=== PATIENT | female | born 2000 | race Caucasian/White ===

== ENCOUNTER 2023-05-28 10:45 | Outpatient (RCR) | payer BC, SELFPAY | END 2023-08-10 10:03 | disposition home or self-care (01) | LOC: ANHDMC 10:45 | PROVIDERS: Visit Provider Obstetrics & Gynecology | DX: O24.12 Pre-existing type 2 diabetes mellitus, in childbirth (principal); Z3A.00 Weeks of gestation of pregnancy not specified; Z71.89 Other specified counseling | CPT/HCPCS: G0108 ==

== ENCOUNTER 2023-05-28 14:33 | Outpatient (RCR) | payer BC, SELFPAY ==
[2023-05-28 16:37] VITALS: BP 130/82; PULSE 97
== END 2023-08-26 23:59 | disposition home or self-care (01) ==
LOC: ANHOBOP 14:33
PROVIDERS: Visit Provider Obstetrics & Gynecology
DX: O36.8130 Decreased fetal movements, third trimester, not applicable or unspecified (principal); Z3A.32 32 weeks gestation of pregnancy
CPT/HCPCS: 59025

== ENCOUNTER 2023-07-01 00:56 | Outpatient (CLI) | payer BC, SELFPAY ==
[2023-07-01 01:15] VITALS: BP 130/85; PULSE 68
[2023-07-01 01:25] LABS: Basophils Percent Auto 0.3 % (0.2-1.2); Eosinophils Absolute Auto 0.1 K/mm3 (0-0.3); Eosinophils Percent Auto 0.8 % (0-4.4); Hematocrit 39.4 % (37.0-47.0); Hemoglobin 13.2 g/dL (12.0-15.0); Immature Granulocyte Absolute 0.21 K/mm3 (0.00-0.031); Immature Granulocyte Percent A 1.6 % (0-0.5); Lymphocytes Absolute Auto 2.95 K/mm3 (0.9-3.2); Lymphocytes Percent Auto 22.7 % (18.3-44.2); Mean Corpuscular HGB Conc 33.5 g/dl (32-36); Mean Corpuscular Hemoglobin 28.8 pg (26-34); Mean Platelet Volume 10.8 fl (7.4-10.4); Monocytes Absolute Auto 1.1 K/mm3 (0.1-0.6); Monocytes Percent Auto 8.1 % (2.6-8.5); Neutrophils Absolute Auto 8.7 K/mm3 (1.3-6.7); Neutrophils Percent Auto 66.5 % (45.5-73.1); Platelet Count Result 251 k/mm3 (150-375); Red Blood Count 4.58 M/mm3 (4.2-5.4); Red Cell Distribution Width 13.7 % (11.5-14.5)
[2023-07-01 01:29] VITALS: BP 130/85; PULSE 68
[2023-07-01 01:30] VITALS: BP 124/72; PULSE 66
[2023-07-01 01:36] LABS: Total Protein Urine Random 10 mg/dL; Ur Ttl Prot Creatinine Ratio 0.28 mg/mg (0-0.20)
[2023-07-01 01:46] VITALS: BP 121/74; PULSE 65
[2023-07-01 01:47] LABS: Appearance Urine Clear (Clear); Bacteria Urine None Seen /hpf; Bilirubin Urine Negative (Negative); Blood Urine Negative (Negative); Color Urine Yellow (Yellow); Glucose Urine UA Negative (Negative); Ketones Urine Negative (Negative); Leukocyte Esterase Ur Trace LEU/UL (NEGATIVE); Nitrate Urine Negative (Negative); Non Pathogenic Casts 0-2; Protein Urine Negative (Negative); RBC Urine 0-2 /hpf (0-2); Specific Grav Ur 1.008 (1.001-1.035); Squamous Epithelial Cell Urine Occasional /hpf (Few); Urobilinogen Urine 0.2 mg/dL (<2.0); WBC Urine 0-5 /hpf (0-3)
[2023-07-01 01:59] LABS: Add Urine Microscopic? YES
[2023-07-01 02:03] LABS: Alanine Aminotransferase 20 U/L (6-35); Albumin Level 3.5 g/dL (3.5-5.1); Alkaline Phosphatase 165 U/L (38-126); Anion Gap 8 mmol/L (8-16); Aspartate Amino Transferase 22 U/L (14-36); Bilirubin,Total 0.4 mg/dL (0.2-1.3); Blood Urea Nitrogen 6 mg/dL (7-17); Calcium 9.5 mg/dL (8.4-10.2); Carbon Dioxide 21 mmol/L (22-30); Chloride 108 mmol/L (98-107); Estimated Glomerular Filt Rate > 60; Glucose 89 mg/dL (65-110); Sodium 137 mmol/L (137-145); Uric Acid 3.8 mg/dL (2.5-7.5)
--- NOTE | 2023-07-01 02:07 | PC.NURSE ---
[id number] Shavonne Bolden
--- NOTE | 2023-07-01 02:11 | PC.NURSE ---
Talked To Dr. Shavonne Bolden at this time. reported on maternal and status. Orders received to give this patient 1000mg of Tylenol at this time. Patient is to follow up at her scheduled office visit today and orders given to dc this patient at this time.
[2023-07-01] MEDS: ACETAMINOPHEN 500 MG TABLET 1000 MG PO (02:16)
[2023-07-01 02:21] VITALS: BP 124/72; PULSE 68
== END 2023-07-01 02:24 | disposition home or self-care (01) ==
LOC: ANHOBOP 01:09 → ANHOBPP 02:21
PROVIDERS: Visit Provider Obstetrics & Gynecology
DX: O13.9 Gestational [pregnancy-induced] hypertension without significant proteinuria, unspecified trimester (principal); Z3A.00 Weeks of gestation of pregnancy not specified
CPT/HCPCS: 36415; 59025; 80053; 81001; 82570; 84156; 84550; 85025; 87086; 87088; 99199; A9270

== ENCOUNTER 2023-07-07 01:01 | Outpatient (CLI) | payer BC, SELFPAY ==
--- NOTE | 2023-07-07 01:40 | PC.NURSE ---
Notified Dr. Renner of negative ROM plus results. FHT appropriate for gestational age. Patient denies contractions or pain and no contractions noted during monitoring. Notified Dr. Renner of patient vital signs during assessment. Patient is ok to go home and follow-up at her normal OB appointment as scheduled this Thursday07/08/2023.
[2023-07-07 01:41] VITALS: BP 132/87; PULSE 72; TEMP 36.8
--- NOTE | 2023-07-07 01:45 | PC.NURSE ---
Labor precautions reviewed with patient. Patient instructed to follow up with Dr. Fields as scheduled this week. Patient states understanding.
== END 2023-07-07 01:45 | disposition home or self-care (01) ==
LOC: ANHOBOP 01:42 → ANHLDR 07-16 06:22
PROVIDERS: Visit Provider Obstetrics & Gynecology
DX: O26.851 Spotting complicating pregnancy, first trimester (principal); Z3A.00 Weeks of gestation of pregnancy not specified
CPT/HCPCS: 59025; 84112; 99199

== ENCOUNTER 2023-07-14 06:05 | Inpatient (IN) | payer BC, SELFPAY ==
[2023-07-14] VITALS (272 sets, daily range): BP systolic 69–186; BP diastolic 37–150; PULSE 25–190; TEMP 36.1–37.1; O2SAT 82–100; BMI 42.1
--- NOTE | 2023-07-14 07:02 | P.HP_ITS ---
H&P: HPI History of Present Illness Date/Time: 07/14/23 07:02 Chief Complaint: term with chronic hypertension Narrative: this is a 23-year-old 1 para 0 whose last menstrual period was 10/13/2022, EDC is 07/20/2023, confirmed by 10 week ultrasound who presents at 39 weeks gestation for induction of labor since secondary to elevated blood pressures. Her findings have been okay. She had an abnormal 1hour glucose test and 2/4 abnormal her 3hour GTT. Her sugars remained well controlled on diet alone. COUNTS INCLUDE 234 BEDS AT THE [facility] Family History Family History Grandparent Ovarian cancer Diabetes mellitus Leukemia Grandparent Ovarian cancer Diabetes mellitus Father Sarcoma Grandparent Diabetes mellitus Grandparent Heart disease Social History Social History Substance use: never Spiritual care concerns: No Meds Home Medications and Allergies Home Medications Medication Instructions Recorded Confirmed Type glyburide 2.5 mg tablet 2.5 mg PO DAILY 06/22/23 06/22/23 History labetalol 100 mg tablet 100 mg PO Q12H 06/22/23 06/22/23 History ondansetron HCl 4 mg tablet 4 mg PO Q6H 06/22/23 06/22/23 History prenat.vits,el,fzq-gxbf-kgore 1 tablet 06/22/23 History Allergies Allergy/AdvReac Type Severity Reaction Status Date / Time No Known Allergies Allergy Verified 07/14/23 06:53 Exam Const: General: cooperative, healthy appearing and comfortable Nutritional Appearance: average body habitus Orientation/consciousness: oriented to person, oriented to place and oriented to time HENMT: Head: normal to inspection Resp: Effort & Inspection: normal respiratory effort Cardio: Rate: regular rate Rhythm: regular rhythm Heart sounds: S1 normal heart sound present and S2 normal heart sound present GI: Inspection: normal to inspection : External Female Exam: normal external appearance Speculum Exam - Vagina: normal appearance of the vagina Speculum Exam - Cervix: normal appearance of the cervix ( Cervix 3/75/1. AROM clear. FHT is reassuring) Assessment and Plan Assessment and plan (1) Term : Code(s): Z34.90 - Encounter for supervision of normal , unspecified, unspecified trimester Status: Acute (2) Chronic hypertension: Code(s): I10 - Essential (primary) hypertension Status: Acute (3) Gestational diabetes: Code(s): O24.419 - Gestational diabetes mellitus in , unspecified control Status: Acute Plan medical induction of labor. Spontaneous vaginal delivery is expected. She has an epidural candidate
--- NOTE | 2023-07-14 07:03 | LDADM ---
This patient, Joya Martinez, was admitted to Labor/Delivery/Recovery 109 on 07/14/23 at 06:05. Plans for labor, pain management and were discussed with patient. Patient/family oriented to hospital policies and general routines including ID bracelet, bed and alarms, visiting hours, pain management, procedures, bathroom and other care routines, personal items, smoking policy, room service/diet and guest tray routines, security routines, and visiting hours. Patient/Family are encouraged to report perceived risks to care and to ask questions if they do not understand what they are told or what they should do. See OBIX for further documentation.
[2023-07-14 07:38] LABS: Basophils Percent Auto 0.3 % (0.2-1.2); Eosinophils Absolute Auto 0.2 K/mm3 (0-0.3); Eosinophils Percent Auto 1.3 % (0-4.4); Hematocrit 38.4 % (37.0-47.0); Hemoglobin 12.8 g/dL (12.0-15.0); Immature Granulocyte Percent A 0.8 % (0-0.5); Immature Platelet Fraction Pct 12.7 % (0.9-11.2); Lymphocytes Absolute Auto 2.26 K/mm3 (0.9-3.2); Lymphocytes Percent Auto 18.1 % (18.3-44.2); Mean Corpuscular HGB Conc 33.3 g/dl (32-36); Mean Corpuscular Hemoglobin 28.8 pg (26-34); Mean Corpuscular Volume 86.3 fl (80-100); Mean Platelet Volume 11.9 fl (7.4-10.4); Monocytes Absolute Auto 0.8 K/mm3 (0.1-0.6); Monocytes Percent Auto 6.7 % (2.6-8.5); Neutrophils Absolute Auto 9.1 K/mm3 (1.3-6.7); Neutrophils Percent Auto 72.8 % (45.5-73.1); Platelet Count Result 231 k/mm3 (150-375); Red Blood Count 4.45 M/mm3 (4.2-5.4); Red Cell Distribution Width 14.3 % (11.5-14.5); White Blood Count 12.5 K/mm3 (4.5-10.0)
[2023-07-14] MEDS: OXYTOCIN 30 UNITS/NS 500 ML 30 UNITS/500 ML BAG 6 UNITS IV CONT (07:45)
[2023-07-14] MEDS: LACTATED RINGERS 1,000 ML 125 ML IV CONT ×3 (07:45→16:02)
[2023-07-14 08:22] LABS: Glucose Point of Care 109 mg/dl (65-105)
[2023-07-14] MEDS: fentaNYL CITRATE INJ (*CRX) 100 MCG/2 ML VIAL 50 MCG IV PUSH (09:58)
[2023-07-14 10:11] LABS: Glucose Point of Care 103 mg/dl (65-105)
--- NOTE | 2023-07-14 11:19 | WPDANESEPP ---
Anes - Eval Pre Procedure Procedure: Labor Epidural Date/Time: 07/14/23 11:19 Surgeon: Eamon Preop Diagnosis: Labor Pain Pre Op Diagnosis: iol Patient Data Age: 23 Gender: F Height: 1.57 m Weight: 104.5 kg Last Vital Signs Temp 36.3 C L 07/14/23 06:37 Pulse 75 07/14/23 11:18 BP 125/64 07/14/23 11:18 Pulse Ox 98 07/14/23 11:14 O2 Del Method Room Air 07/14/23 06:56 Allergies Allergy/AdvReac Type Severity Reaction Status Date / Time No Known Allergies Allergy Verified 07/14/23 06:53 Home Medications Medication Instructions Recorded Confirmed Type glyburide 2.5 mg tablet 2.5 mg PO DAILY 06/22/23 06/22/23 History labetalol 100 mg tablet 100 mg PO Q12H 06/22/23 06/22/23 History ondansetron HCl 4 mg tablet 4 mg PO Q6H 06/22/23 06/22/23 History prenat.vits,el,gjq-sqtw-aenwm 1 tablet PO DAILY 06/22/23 07/14/23 History Laboratory Tests 07/14/23 07/14/23 07/14/23 06:51 08:19 10:08 WBC 12.5 H K/mm3 (4.5-10.0) RBC 4.45 M/mm3 (4.2-5.4) Hgb 12.8 g/dL (12.0-15.0) Hct 38.4 % (37.0-47.0) MCV 86.3 fl (80-100) MCH 28.8 pg (26-34) MCHC 33.3 g/dl (32-36) RDW 14.3 % (11.5-14.5) Plt Count 231 k/mm3 (150-375) MPV 11.9 H fl (7.4-10.4) Immature Gran % (Auto) 0.8 H % (0-0.5) Neut % (Auto) 72.8 % (45.5-73.1) Lymph % (Auto) 18.1 L % (18.3-44.2) [place] % (Auto) 6.7 % (2.6-8.5) Eos % (Auto) 1.3 % (0-4.4) Baso % (Auto) 0.3 % (0.2-1.2) Lymph # (Auto) 2.26 K/mm3 (0.9-3.2) [place] # (Auto) 0.8 H K/mm3 (0.1-0.6) Eos # (Auto) 0.2 K/mm3 (0-0.3) Baso # (Auto) 0.0 K/mm3 (0.0-0.1) Abs Immat Gran (auto) 0.10 H K/mm3 (0.00-0.031) Absolute Neuts (auto) 9.1 H K/mm3 (1.3-6.7) Absolute Nucleated RBC 0.0 K/mm3 (0.0-0.012) Nucleated RBC % 0.0 % (0.0-0.2) % Immature Plt Fraction 12.7 H % (0.9-11.2) POC Capillary Glucose 109 H mg/dl 103 mg/dl (65-105) (65-105) RPR Pending Blood Type B Positive Antibody Screen Negative : gestational age (FOREIGN 07/20/23, ) Patient hx anesthesia problems: none Family hx anesthesia problems: none Results Review: All pre-operative results and documents have been reviewed as part of the pre-operative evaluation. [facility] Family History Family History Grandparent Ovarian cancer Diabetes mellitus Leukemia Grandparent Ovarian cancer Diabetes mellitus Father Sarcoma Grandparent Diabetes mellitus Grandparent Heart disease Social History Social History Smoking status: Never smoker Second hand tobacco smoke exposure: No Substance use: never Do You Feel Safe in your Home?: Yes Lack of Transportation: No Lack of Food: Never True Current Housing: I Have Housing Concerned About Future Housing: No Difficulty Paying Gas/Electric Bills: No Difficulty Paying for Meds: No Currently Unemployed: No Education: Bachelor's Degree Difficulty w/ Childcare or Family Care: No Spiritual care concerns: No Exam Day of Procedure 07/14/23 11:19 Patient weight: obese Heart: regular rate and rhythm Lungs: normal air movement Airway: Mallampati scale class II Neurological: alert and oriented
--- NOTE | 2023-07-14 12:02 | PM.OBPNLAB ---
Pain Control Date/time seen: 07/14/23 12:02 Pain control: tolerating well and epidural Pelvic Exam Dilation (cm): 3 Effacement (%): 75 station: -2 Amniotic membrane status: Leaking
[2023-07-14 14:32] LABS: Glucose Point of Care 86 mg/dl (65-105)
[2023-07-14 15:57] LABS: Rapid Plasma Reagin Non-Reactive (NonReactive)
[2023-07-14 16:32] LABS: Glucose Point of Care 87 mg/dl (65-105)
--- NOTE | 2023-07-14 16:37 | PM.OBPNLAB ---
Pain Control Date/time seen: 07/14/23 16:37 Pelvic Exam Dilation (cm): 10 Effacement (%): 100 station: -1 Amniotic membrane status: Leaking
--- NOTE | 2023-07-14 23:07 | PM.OBPNLAB ---
Pain Control Date/time seen: 07/14/23 23:07 Pain control: tolerating well and epidural Pelvic Exam Dilation (cm): 10 Effacement (%): 100 station: -1 Amniotic membrane status: Leaking Comments: the patient is the pushed for 2 she is a to bring to a low enough level to allow for assistance. Proceed with low-transverse section. Risks were reviewed
[2023-07-14] MEDS: ceFAZolin 2 GM/D5W 50 ML 2 GM/50 ML BAG IVPB (23:31)
[2023-07-15] VITALS (57 sets, daily range): BP systolic 99–155; BP diastolic 53–92; PULSE 93–120; RESP 8–20; TEMP 36.6–38.2; O2SAT 94–100
--- NOTE | 2023-07-15 00:26 | W.PM.OBCSD ---
OB - Delivery Note Procedure Delivery date: 07/15/23 Pre-op diagnosis: Arrest of Decent Post-op Diagnosis: Same Induction method: AROM Delivery augmentation: Pitocin Delivery monitor: External FHT and Internal Uterine Procedure Performed: Primary Surgeon: Priyank Bolden MD Anesthesia type: Epidural Description of Procedure/Findings: Patient was admitted for induction labor. She got to completely dilated and pushed for 3hours was unable to bring past +2 station. She was offered low-transverse section taken the back prepped draped placed in the supine position. Under excellent epidural anesthesia the abdomen was entered in Pfannenstiel fashion progressive layers of fascia. Fascia incised midline cure number not press bilaterally. Underlying muscles sharply dissected. Parietal peritoneum 0 by Mel clamps and by sharp dissection. This was carried superiorly and inferiorly down the bladder. Bladder blade placed and a bladder flap formed. Bladder blade returned a low transverse incision made the head delivered in the TREV position. Anterior posterior shoulder delivered spontaneously. Cord clamped oozing cut and passed off the table given Apgars of 8 [id number]. Cord blood was drawn. Placenta delivered intact manually. Uterus delivered the abdomen wrapped in moist towel. After assuring no membranes or debris remained in the uterus, the uterus was closed with continuous running 0 Vicryl from lateral edge to lateral edge. This followed by 2nd imbricating running locking 0 Vicryl from lateral edge to lateral edge. Hemostasis was assured uterus returned to the abdomen. Ovaries and tubes appeared within normal limits. Laps removed and accounted for. The fascia closed with continuous running 0 Vicryl from lateral edge to lateral edge. Irrigation subcutaneously and the skin closed with 4 Monocryl glue. Blood loss was 905cc. All sponge, needle, instrument counts correct baby doing fine at the time dictation Estimated Blood Loss: 905 Drains: No Packing: No Pathology: None sent Complications: No immediate complications Condition: Stable Disposition: Floor [place] Baby Date of : 07/15/23 Time of : 23:00 Weeks of gestation at delivery: 40 gender: Female Weight (pounds): 7 Weight (ounces): 10 presentation: vertex position: Right Occiput Anterior Placenta delivery description: Manual Removal Cord Vessel Description: 3 Vessels score one minute: 8 score five minutes: 9
--- NOTE | 2023-07-15 00:29 | PM.DS ---
DS: Admitting Diagnosis Discharge Date 07/17/2023 Admitting Diagnosis term /gestational diabetes/ chronic hypertension DS: Discharge Diagnosis Discharge Diagnosis (1) Gestational diabetes: Code(s): O24.419 - Gestational diabetes mellitus in , unspecified control Status: Acute (2) Chronic hypertension: Code(s): I10 - Essential (primary) hypertension Status: Acute (3) Term : Code(s): Z34.90 - Encounter for supervision of normal , unspecified, unspecified trimester Status: Acute DS: Summary Hospital Course Reason for hospitalization: patient was admitted for induction of labor on 07/14/2023. Hospital Course: Patient underwent low-transverse 24. Hospital course. She remained afebrile. She was up when cut, eating regular diet, ambulating, generally without complaints. Time Spent with Patient Time attestation: Total time spent providing and/or coordinating discharge services: Exam Const: General: cooperative, healthy appearing and comfortable Orientation/consciousness: oriented to person, oriented to place and oriented to time Resp: Effort & Inspection: normal respiratory effort Cardio: Rate: regular rate Rhythm: regular rhythm Heart sounds: S1 normal heart sound present and S2 normal heart sound present GI: Inspection: normal to inspection ( Fundus removal next) and incision ( wound clean dry and intact) DS: Data Data Completed and Pending Labs on day of discharge: Labs from last 24 hours 07/14/23 07/14/23 07/14/23 16:19 14:26 10:08 WBC RBC Hgb Hct MCV MCH MCHC RDW Plt Count MPV Immature Gran % (Auto) Neut % (Auto) Lymph % (Auto) [place] % (Auto) Eos % (Auto) Baso % (Auto) Lymph # (Auto) [place] # (Auto) Eos # (Auto) Baso # (Auto) Abs Immat Gran (auto) Absolute Neuts (auto) Absolute Nucleated RBC Nucleated RBC % % Immature Plt Fraction POC Capillary Glucose 87 86 103 RPR Blood Type Antibody Screen 07/14/23 07/14/23 08:19 06:51 WBC 12.5 H RBC 4.45 Hgb 12.8 Hct 38.4 MCV 86.3 MCH 28.8 MCHC 33.3 RDW 14.3 Plt Count 231 MPV 11.9 H Immature Gran % (Auto) 0.8 H Neut % (Auto) 72.8 Lymph % (Auto) 18.1 L [place] % (Auto) 6.7 Eos % (Auto) 1.3 Baso % (Auto) 0.3 Lymph # (Auto) 2.26 [place] # (Auto) 0.8 H Eos # (Auto) 0.2 Baso # (Auto) 0.0 Abs Immat Gran (auto) 0.10 H Absolute Neuts (auto) 9.1 H Absolute Nucleated RBC 0.0 Nucleated RBC % 0.0 % Immature Plt Fraction 12.7 H POC Capillary Glucose 109 H RPR Non-reactive Blood Type B Positive Antibody Screen Negative Discharge Plan Discharge Attending physician on discharge: Priyank Espino Discharging Clinician: Priyank Espino Patient Disposition: Home, Self-Care Activity: may shower and pelvic rest Diet: heart healthy Wound Care Instructions: follow printed instructions Patient Instructions: Antibiotic Form Stand Alone Forms: General Discharge Information Follow-up/Referrals: Priyank Espino MD [Physician] - Discharge Medications: New hydrocodone-acetaminophen 5-325 mg tablet 1 tablet PO Q4H PRN (Reason: pain) Qty: 30 0RF Continued glyburide 2.5 mg Tablet 2.5 mg PO DAILY ondansetron HCl [Zofran] 4 mg Tablet 4 mg PO Q6H labetalol 100 mg Tablet 100 mg PO Q12H #2 Tablet 1 tablet PO DAILY Date of admission: 07/14/23 06:05 Primary Care Provider: PHYSICIAN,ONION TOPPER Admitting Provider: Priyank Espino Attending physician on admission: Priyank Espino Condition: Stable
[2023-07-15] MEDS: KETOROLAC 30 MG/ML VIAL (*BKC) IV PUSH (00:33)
--- NOTE | 2023-07-15 01:51 | PC.NURSE ---
Updated Dr Shavonne Bolden about patients status. Also reported patient to be having low grade temps and orders were received to give patient tylenol
[2023-07-15] MEDS: ACETAMINOPHEN 500 MG TABLET 1000 MG PO (02:14)
[2023-07-15] MEDS: OXYTOCIN 30 UNITS/NS 500 ML 30 UNITS/500 ML BAG 125 UNITS IV CONT (02:38)
--- NOTE | 2023-07-15 06:11 | P.PNOB_ITS ---
OB - PN: Subj Subjective Date/time seen: 07/15/23 06:11 Patient comments: no complaints and pain well controlled baby status: doing well OB - PN: Obj Data Labs 07/14/23 06:51 Labs: Laboratory Results - last 24 hr 07/14/23 07/14/23 07/14/23 06:51 08:19 10:08 WBC 12.5 H RBC 4.45 Hgb 12.8 Hct 38.4 MCV 86.3 MCH 28.8 MCHC 33.3 RDW 14.3 Plt Count 231 MPV 11.9 H Immature Gran % (Auto) 0.8 H Neut % (Auto) 72.8 Lymph % (Auto) 18.1 L [place] % (Auto) 6.7 Eos % (Auto) 1.3 Baso % (Auto) 0.3 Lymph # (Auto) 2.26 [place] # (Auto) 0.8 H Eos # (Auto) 0.2 Baso # (Auto) 0.0 Abs Immat Gran (auto) 0.10 H Absolute Neuts (auto) 9.1 H Absolute Nucleated RBC 0.0 Nucleated RBC % 0.0 % Immature Plt Fraction 12.7 H POC Capillary Glucose 109 H 103 RPR Non-reactive Blood Type B Positive Antibody Screen Negative 07/14/23 07/14/23 14:26 16:19 WBC RBC Hgb Hct MCV MCH MCHC RDW Plt Count MPV Immature Gran % (Auto) Neut % (Auto) Lymph % (Auto) [place] % (Auto) Eos % (Auto) Baso % (Auto) Lymph # (Auto) [place] # (Auto) Eos # (Auto) Baso # (Auto) Abs Immat Gran (auto) Absolute Neuts (auto) Absolute Nucleated RBC Nucleated RBC % % Immature Plt Fraction POC Capillary Glucose 86 87 RPR Blood Type Antibody Screen OB - PN A/P Plan day: 1 Plan: routine care Time Spent With Patient Time: Total time spent is greater than 50% in coordination of care (as documented) at patient's floor/unit and/or counseling patient: Time with patient: less than 15 minutes Exam Const: General: cooperative, healthy appearing and comfortable Orientation/consciousness: oriented to person, oriented to place and oriented to time HENMT: Head: normal to inspection Resp: Effort & Inspection: normal respiratory effort Cardio: Rate: regular rate Rhythm: regular rhythm Heart sounds: S1 normal heart sound present and S2 normal heart sound present GI: Inspection: normal to inspection and incision (cdi)
--- NOTE | 2023-07-15 08:15 | PC.NURSE ---
Breast pump provided due to nipple shield use. Instructions given on cleaning, care, usage, that there should be no pain, pumping schedule for milk production, collection, and storage of human milk. Patient was assessed for correct placement, flange size, to pump for comfort and nipple stretching/stimulation for adequate milk production every 3 hours (8 times in 24 hours) 1-2 times at night. Parents are encouraged to record the pumping schedule on the feeding sheet.?Mother voiced understanding of the education shared along with mom/baby guide and the pump measurement, flange fit handout for additional resource information.
[2023-07-15] MEDS: DEXTROSE 5%/0.45% SOD CHL 1,000 ML 125 ML IV CONT (08:49)
--- NOTE | 2023-07-15 13:33 | WPDANLDPN2 ---
Anes-Prog Note L&D Date/Time: 07/15/23 13:33 Comfortable throughout: section Neuraxial method: spinal Epidural/Spinal procedure site: clean & non-tender Neuro status: Neuro function grossly intact. Cardiovascular status: normal Respiratory status: normal Airway patency: baseline Mental status: baseline Post-Op hydration status: normal Vital Signs: Last Vital Signs Temp 98.1 F 07/15/23 12:10 Pulse 119 H 07/15/23 12:10 Resp 18 07/15/23 12:10 BP 128/65 07/15/23 12:10 Pulse Ox 98 07/15/23 12:10 O2 Del Method Room Air 07/15/23 12:04 Pain score (VAS): 0/10 I/O: Intake & Output 07/14/23 07/15/23 07/15/23 23:59 07:59 15:59 Intake Total 1000 200 Output Total 2675 500 Balance 1000 -2475 -500 Post-procedural complaints: none Patient feedback: Patient satisfied with anesthetic care.
--- NOTE | 2023-07-15 13:33 | WPDANLDNPN2 ---
Anes-Prog Note L&D-Neuraxial Date/Time: 07/15/23 13:33 Neuraxial medications: intrathecal PF morphine Opiod-related complaints: none Patient feedback: Patient satisfied with post-operative pain management.
--- NOTE | 2023-07-15 14:45 | PC.NURSE ---
PT introductions made and plan of care discussed per post op c section, pain management, breast feeding, daily care activities. PT and family present and no barriers to learning identified at this time. PT received such instructions this shift via one to one discussion, mom baby care guide and demonstrations. Pt verbalized understanding of such care.
[2023-07-15] MEDS: HYDROcodone/acetaminophen (*CRX) 5-325 MG TABLET 1 TAB PO ×2 (15:35→19:15)
[2023-07-15] MEDS: IBUPROFEN 600 MG TABLET PO (15:36)
[2023-07-15] MEDS: SIMETHICONE 80 MG TAB.CHEW PO ×2 (15:38→19:15)
[2023-07-15] MEDS: LANOLIN (LANSINOH) 7.5 GM CREAM 1 APPLIC TOPICAL (15:38)
[2023-07-15] MEDS: POLYSACCHARIDE IRON COMPLEX 150 MG CAPSULE PO (17:25)
[2023-07-15] MEDS: DOCUSATE SODIUM 100 MG CAPSULE PO (17:25)
--- NOTE | 2023-07-15 17:49 | PC.NURSE ---
[id number] Introductions were made, then consulted with patient to assess needs related to . Mother led the conversation with her?plans to feed?her infant, the?experience so far and is pumping related to mother has used the nipple shield twice. Breast pump provided earlier by the Primary RN due to ineffective . Instructions given on cleaning, care, usage, that there should be no pain, pumping schedule for milk production, collection, and storage of human milk. Patient was assessed for correct placement, flange size, to pump for comfort and nipple stretching/stimulation for adequate milk production every 3 hours (8 times in 24 hours) 1-2 times at night. Parents are encouraged to record the pumping.?Mother voiced understanding of the education shared along with mom/baby guide and the pump measurement, flange fit handout for additional resource information. Breast shield size changed to 21mm as this is the closest appropriate fit we can provide at this time. EBM is collected. Inpatient/outpatient resources provided with feeding sheet, name written on the communication board, and the mom/baby guide. [phone] Encouraged understanding of the benefits of skin to skin (demonstrating unwrapping and placing upright on her chest), stimulating with massage touch, changing positions to encourage wakefulness, how to watch for early feeding cues, responsive feeding, feeding on demand (aiming for 8-12 times in 24 hours, about every 2-3 hours), milk production, building/maintaining a milk supply, duration of feeding, signs of adequate intake/output and how to record on the feeding sheet. Mother works well with her infant with encouragement and education. is sleepy and reluctant. Blood sugar resulted in 72mg/dl. 1023 -Purposefully rounded to assess for needs. No latch or successful attempt as infant remains sleepy and reluctant. Mother shared that she syringe fed infant at 1015. Mother voiced understanding of skin to skin, stimulating with massage touch, responsive feedings, hand expressed colostrum, talking to infant to encourage if it has been 2 -2.5 hours since the start of the last , to call if does not latch, or if there is discomfort with . Resources used for education were facilitated with the visual educational handouts, tool, mom and baby guide. Inpatient/outpatient resources provided with feeding sheet, name written on the communication board, and the mom/baby guide. Parents voiced understanding of information, demonstrated learning and will call if there is a request for assistance. 1505 Primary RN reported that the last feeding was at 1140 and a blood sugar had been checked resulting at 60mg/dl. [phone] Mother shared she has continued to attempt to latch infant with a nipple shield, pumping, and syringe feeding her . Infant has had 5 voids and 3 stools. Encouraged mother to encourage with [id number], attempting with and without the nipple shield, and protect her milk supply with pumping. POC is to continue to work with latching infant with the nipple shield doing the nipple shield bea to hopefully get infant to effectively breastfeed without the tool. Mother voiced understanding the education and has resources to call for assistance.
[2023-07-16] MEDS: HYDROcodone/acetaminophen (*CRX) 5-325 MG TABLET 1 TAB PO ×6 (00:03→23:50)
[2023-07-16] MEDS: IBUPROFEN 600 MG TABLET PO ×4 (00:04→23:50)
[2023-07-16 01:00] VITALS: BP 136/82; PULSE 86; RESP 18; TEMP 36.6; O2SAT 99
[2023-07-16 04:49] LABS: Basophils Absolute Auto 0.1 K/mm3 (0.0-0.1); Basophils Percent Auto 0.4 % (0.2-1.2); Eosinophils Absolute Auto 0.1 K/mm3 (0-0.3); Eosinophils Percent Auto 0.8 % (0-4.4); Hematocrit 29.3 % (37.0-47.0); Hemoglobin 9.6 g/dL (12.0-15.0); Immature Granulocyte Absolute 0.17 K/mm3 (0.00-0.031); Immature Granulocyte Percent A 1.2 % (0-0.5); Lymphocytes Absolute Auto 1.73 K/mm3 (0.9-3.2); Lymphocytes Percent Auto 11.9 % (18.3-44.2); Mean Corpuscular HGB Conc 32.8 g/dl (32-36); Mean Corpuscular Hemoglobin 29.2 pg (26-34); Mean Corpuscular Volume 89.1 fl (80-100); Mean Platelet Volume 10.3 fl (7.4-10.4); Monocytes Absolute Auto 0.9 K/mm3 (0.1-0.6); Monocytes Percent Auto 5.9 % (2.6-8.5); Neutrophils Absolute Auto 11.6 K/mm3 (1.3-6.7); Neutrophils Percent Auto 79.8 % (45.5-73.1); Platelet Count Result 198 k/mm3 (150-375); Red Blood Count 3.29 M/mm3 (4.2-5.4); Red Cell Distribution Width 14.6 % (11.5-14.5); White Blood Count 14.5 K/mm3 (4.5-10.0)
--- NOTE | 2023-07-16 06:51 | PM.OBPNVD ---
OB - PN: Subj Subjective Date/time seen: 07/16/23 06:51 Patient comments: no complaints and pain well controlled baby status: doing well and nursing well OB - PN: Obj Data Labs 07/16/23 04:38 Labs: Laboratory Results - last 24 hr 07/16/23 04:38 WBC 14.5 H RBC 3.29 L Hgb 9.6 L D Hct 29.3 L MCV 89.1 MCH 29.2 MCHC 32.8 RDW 14.6 H Plt Count 198 MPV 10.3 Immature Gran % (Auto) 1.2 H Neut % (Auto) 79.8 H Lymph % (Auto) 11.9 L [place] % (Auto) 5.9 Eos % (Auto) 0.8 Baso % (Auto) 0.4 Lymph # (Auto) 1.73 [place] # (Auto) 0.9 H Eos # (Auto) 0.1 Baso # (Auto) 0.1 Abs Immat Gran (auto) 0.17 H Absolute Neuts (auto) 11.6 H Absolute Nucleated RBC 0.0 Nucleated RBC % 0.0 OB - PN A/P Plan day: 1 Plan: routine care Time Spent With Patient Time: Total time spent is greater than 50% in coordination of care (as documented) at patient's floor/unit and/or counseling patient: Time with patient: less than 15 minutes Exam Const: General: cooperative, healthy appearing and comfortable Nutritional Appearance: average body habitus Orientation/consciousness: oriented to person, oriented to place and oriented to time HENMT: Head: normal to inspection Resp: Effort & Inspection: normal respiratory effort Cardio: Rate: regular rate Rhythm: regular rhythm Heart sounds: S1 normal heart sound present and S2 normal heart sound present GI: Inspection: normal to inspection and incision (cdi)
[2023-07-16 08:05] VITALS: BP 117/69; PULSE 83; RESP 18; TEMP 36.9; O2SAT 100
[2023-07-16] MEDS: SIMETHICONE 80 MG TAB.CHEW PO ×3 (08:29→17:48)
[2023-07-16] MEDS: DOCUSATE SODIUM 100 MG CAPSULE PO ×2 (08:31→16:09)
[2023-07-16] MEDS: POLYSACCHARIDE IRON COMPLEX 150 MG CAPSULE PO ×2 (08:31→16:09)
[2023-07-16] MEDS: MULTIVIT/MIN/PREN/FOL AC/IRON TABLET 1 TAB PO (08:32)
[2023-07-16 16:00] VITALS: BP 137/86
--- NOTE | 2023-07-16 17:02 | PC.NURSE ---
[id number] Purposefully rounded to assess for needs. is not in the room and mother shared she will call for assistance at the next feeding. [id number] Mother called for assistance with . Discussed with mother her successes, concerns and any questions she has. We reviewed working with the infant, supporting breast, protecting her nipples with an optimal deep latch, good positioning, and good hand washing. Mother has been given a nipple shield previously by a past Primary RN. Reviewed positioning and alignment, supporting breast, off-centered (asymmetrical latch) and leading with the chin with big, open, wide gape with and without a nipple shield. Infant doesn't latch optimally with the nipple shield evidenced by the observation of half the nipple shield can be seen when assessed. When the nipple shield was removed mothers nipples were pinched on the tip. The attempts made to latch to mothers breast resulted in a shallow latch with holding the nipple just inside the lips and there was no suction to break. Mother was encouraged to protect her milk supply with consistent pumping every 2-3 hours during the day and every 3-4 at night. Nipple care reviewed with optimal latch, good positioning and using clean hands when touching her breast. Assessment of demonstrates possibly no appropriate latches since and infant has received the syringe EBM only. Discussed the weight loss and the increase jaundice with mother and the possibility that infant may need supplementation. may be supplemented with EBM at this time, but the plan may change later tonight. We discussed paced bottle feeding the EBM to infant vs syringe as well. Resources used to facilitate learning were used from the visual handouts, tool, mom and baby guide. Mother voiced understanding of the education shared. Reported to the Primary RN. [id number] Discussed mother and maternal mothers concerns, POC, demonstrated paced bottle feeding after a pumping session. Mother bottle fed 8mls to her . The plan is to pump about every 2 hours until dark, then every 3-4. Mother will attempt to if infant gives feeding cues and efforts. Mother voiced understanding of what a suboptimal latch looks like and when to move towards feeding infant if there's no appropriate latching. Primary RN is present in the room and understands the plan.
[2023-07-16 20:10] VITALS: BP 133/73; PULSE 93; RESP 18; TEMP 36.6; O2SAT 100
[2023-07-16] MEDS: HYDROcodone/acetaminophen (*CRX) 10-325 MG TABLET 1 TAB PO (20:10)
[2023-07-17] MEDS: HYDROcodone/acetaminophen (*CRX) 5-325 MG TABLET 1 TAB PO ×2 (04:31→08:36)
[2023-07-17 04:37] VITALS: BP 138/89; PULSE 91
--- NOTE | 2023-07-17 06:53 | P.PNOB_ITS ---
OB - PN: Subj Subjective Date/time seen: 07/17/23 06:53 Patient comments: no complaints and pain well controlled baby status: doing well OB - PN: Obj Data Labs 07/16/23 04:38 OB - PN A/P Plan day: 2 Plan: routine care, discharge home and follow up 6 weeks (4) Time Spent With Patient Time: Total time spent is greater than 50% in coordination of care (as documented) at patient's floor/unit and/or counseling patient: Time with patient: less than 15 minutes Exam Const: General: cooperative, healthy appearing and comfortable Orie ntation/consciousness: oriented to person, oriented to place and oriented to time Resp: Effort & Inspection: normal respiratory effort Cardio: Rate: regular rate Rhythm: regular rhythm Heart sounds: S1 normal heart sound present and S2 normal heart sound present GI: Inspection: normal to inspection and incision (cdi)
[2023-07-17 08:13] VITALS: BP 136/87; PULSE 98; RESP 20; TEMP 36.6; O2SAT 100
[2023-07-17] MEDS: MULTIVIT/MIN/PREN/FOL AC/IRON TABLET 1 TAB PO (08:34)
[2023-07-17] MEDS: DOCUSATE SODIUM 100 MG CAPSULE PO (08:34)
[2023-07-17] MEDS: SIMETHICONE 80 MG TAB.CHEW PO (08:34)
[2023-07-17] MEDS: POLYSACCHARIDE IRON COMPLEX 150 MG CAPSULE PO (08:34)
[2023-07-17] MEDS: IBUPROFEN 600 MG TABLET PO (08:35)
--- NOTE | 2023-07-17 14:42 | PC.NURSE ---
[id number] Consulted with patient to assess needs related to . Discussed with mother her successes, concerns and any questions she has. We reviewed working with the , supporting breast, protecting her nipples with an optimal deep latch, good positioning, and good hand washing. Encouraged understanding the benefits of skin to skin, responding to feeding cues, frequencies of feeding 8-12 times in 24 hours (approximately 2-3 hours), duration of feedings, milk production, intake/output feeding sheet and signs of adequate intake encouraging swallowing at the breast. Reviewed positioning and alignment, supporting breast, off-centered (asymmetrical latch) and leading with the chin with big, open, wide gape. Infant doesn't latch appropriately with the nipple shield evidenced by the nipple being misshaped after removing the shield to attempt to latch infant to the breast. Mother has been pumping to protect her milk supply. We continued our discussion from yesterday evening regarding the concerns of the not latching with the appearance of increasing jaundice, tiredness, and weight loss. Mother has decided to continue to pump and feed. Encouragement was given to continue to practice and become more comfortable with holding and moving her to change positioning. Nipple care reviewed with optimal latch, good positioning, pumping frequently with appropriate breast shield, and using clean hands when touching her breast. Reinforced understanding of milk production, transition of milk, signs of adequate intake, transition of stool, prevention/relief of engorgement, plugged ducts, mastitis, frequent removal of milk 8 times in 24 hours with 1-2 times at night, community resources, and when to call a provider using the resource of the feeding sheet and the mom and baby guide. Parents voiced understanding of the education shared. Reported to the Primary RN.
[2023-07-18 08:34] VITALS: BP 125/82; PULSE 83; RESP 18; TEMP 36.7; O2SAT 98
== END 2023-07-17 11:31 | disposition home or self-care (01) | DRG 788 ==
LOC: ANHLDR 07-15 00:32 → ANHOB2 07-15 04:02
PROVIDERS: Admitting Provider Obstetrics & Gynecology; Visit Provider Obstetrics & Gynecology
PROC: 10D00Z1 Extraction of Products of Conception, Low, Open Approach (ICD-10-PCS; CPT 59514; principal; 2023-07-14 23:30)
DX: O10.92 Unspecified pre-existing hypertension complicating childbirth (principal); O24.420 Gestational diabetes mellitus in childbirth, diet controlled; O62.1 Secondary uterine inertia; Z3A.39 39 weeks gestation of pregnancy; Z37.0 Single live birth
CPT/HCPCS: 36415; 82948; 85025; 85055; 86592; 86850; 86900; 86901; A9270; J0690; J1885; J2175; J2274; J2590; J2795; J3010; J7120

== ENCOUNTER 2023-10-05 19:48 | Observation (INO) | payer BC, OTHER, SELFPAY ==
--- NOTE | ~2023-10-05 | CT_ITS ---
EXAMINATION: CT abdomen pelvis w con DATE: 10/05/2023 22:31 INDICATION: abd pain, vomiting TECHNIQUE: Computed tomography (CT) of the abdomen and pelvis was performed with 100 mL Omnipaque-350 intravenous contrast. Automated exposure control and iterative reconstruction technique were employe d. The dose-length product was 1059.35 mGy-cm. COMPARISON: None. FINDINGS: Lower thorax: Unremarkable Liver: Enlarged. Biliary/Gallbladder: Gallbladder is normal. No bile duct dilation. Pancreas: No mass or duct dilation. Spleen: Normal. Adrenals:No mass. Kidneys: No suspicious mass, obstructing stone, or hydronephrosis. GI tract: Mild distal esophageal and gastric wall edema. No small or large bowel dilation. Dilated ap pendix with surrounding inflammatory change. Multiple appendicoliths. No evidence of abscess or perfo ration. Mesentery/Peritoneum: No ascites, mass, or free air. Retroperitoneum: No mass. Pelvis: Normal uterus and right ovary. The left ovary is not confidently visualized. Normal urinary b ladder. Soft Tissues: Soft tissues and body wall unremarkable. Bones: No acute osseous finding. IMPRESSION: Mild esophagitis/gastritis. Hepatomegaly. Acute uncomplicated appendicitis. Reviewed, dictated and finalized at location K.
[2023-10-05 19:49] VITALS: BP 144/131; PULSE 62; RESP 18; TEMP 36.7; O2SAT 100
[2023-10-05 20:19] VITALS: BP 137/83; PULSE 54; RESP 25; O2SAT 100
[2023-10-05 20:33] LABS: Basophils Percent Auto 0.2 % (0.2-1.2); Eosinophils Percent Auto 0.3 % (0-4.4); Hematocrit 44.8 % (37.0-47.0); Hemoglobin 14.9 g/dL (12.0-15.0); Immature Granulocyte Absolute 0.05 K/mm3 (0.00-0.031); Immature Granulocyte Percent A 0.4 % (0-0.5); Lymphocytes Absolute Auto 1.57 K/mm3 (0.9-3.2); Lymphocytes Percent Auto 11.8 % (18.3-44.2); Mean Corpuscular HGB Conc 33.3 g/dl (32-36); Mean Corpuscular Hemoglobin 28.5 pg (26-34); Mean Corpuscular Volume 85.8 fl (80-100); Mean Platelet Volume 9.9 fl (7.4-10.4); Monocytes Absolute Auto 0.4 K/mm3 (0.1-0.6); Monocytes Percent Auto 2.9 % (2.6-8.5); Neutrophils Absolute Auto 11.2 K/mm3 (1.3-6.7); Neutrophils Percent Auto 84.4 % (45.5-73.1); Platelet Count Result 348 k/mm3 (150-375); Red Blood Count 5.22 M/mm3 (4.2-5.4); Red Cell Distribution Width 12.5 % (11.5-14.5); White Blood Count 13.3 K/mm3 (4.5-10.0)
--- NOTE | 2023-10-05 20:40 | PC.NURSE ---
This RN called to room. Family states pt thinks she is going to pass out. Pt supine on stretcher, eyes rolled back, restless. Pt is A&Ox4, alert to verbal stimuli, follows commands with c/o severe abd pain. ROBYN Garibay called to bedside, new orders placed.
[2023-10-05 20:46] LABS: Alanine Aminotransferase 91 U/L (6-35); Albumin Level 4.8 g/dL (3.5-5.1); Alkaline Phosphatase 112 U/L (38-126); Anion Gap 6 mmol/L (4-12); Aspartate Amino Transferase 46 U/L (14-36); Bilirubin,Total 0.5 mg/dL (0.2-1.3); Blood Urea Nitrogen 14 mg/dL (7-17); Calcium 9.6 mg/dL (8.4-10.2); Carbon Dioxide 26 mmol/L (22-30); Chloride 107 mmol/L (98-107); Estimated CRCL calculation 109 ml/min; Estimated Glomerular Filt Rate > 60; Glucose 118 mg/dL (65-110); Lipase 111 U/L (23-300); Potassium 3.8 mmol/L (3.4-5.0); Sodium 139 mmol/L (137-145)
[2023-10-05] MEDS: ONDANSETRON INJ 4 MG/2 ML VIAL IV PUSH (20:54)
[2023-10-05] MEDS: MORPHINE SULFATE (*CRX) 4 MG/ML INJ IV PUSH (20:54)
[2023-10-05] MEDS: SODIUM CHLORIDE 0.9% IV 1,000 ML 999 ML (20:54)
--- NOTE | 2023-10-05 21:00 | ED.ABDPAIN ---
HPI - Abdominal Pain General Chief Complaint: Abdominal Pain Stated Complaint: abd pain and vomiting Time Seen by Provider: 10/05/23 20:28 Source: patient Mode of arrival: wheelchair Limitations: no limitations History of Present Illness HPI narrative: This is a 23 year old female that presents to the ER for abdominal pain. Ongoing since this afternoon. Associated with nausea and vomiting. Reports she is about 3 months post- with a c section delivery. She has been having trouble with her abdominal incision with wound dehiscence. She has been seeing Dr. Shavonne Bolden for this. Denies fevers or dysuria. Related Data Home Medications Medication Instructions Recorded Confirmed glyburide 2.5 mg tablet 2.5 mg PO DAILY 06/22/23 06/22/23 labetalol 100 mg tablet 100 mg PO Q12H 06/22/23 06/22/23 ondansetron HCl 4 mg tablet 4 mg PO Q6H 06/22/23 06/22/23 prenat.vits,el,pou-kcoa-jxvbq 1 tablet PO DAILY 06/22/23 07/14/23 Allergies Allergy/AdvReac Type Severity Reaction Status Date / Time No Known Allergies Allergy Verified 07/14/23 06:53 Review of Systems Review of Systems: CONSTITUTIONAL: Denies fever GASTROINTESTINAL: Reports abdominal pain, nausea, vomiting. Denies diarrhea. GENITOURINARY: Denies dysuria All systems reviewed & are unremarkable except as noted in HPI and below PMFSH Past Medical History Medical History (Updated 10/06/23 @ 01:23 by Lani Saunders PA-C) Gestational diabetes Family History Family History Grandparent Ovarian cancer Diabetes mellitus Leukemia Grandparent Ovarian cancer Diabetes mellitus Father Sarcoma Grandparent Diabetes mellitus Grandparent Heart disease Social History Social History Smoking status: Never smoker Second hand tobacco smoke exposure: No Substance use: never Do You Feel Safe in your Home?: Yes Lack of Transportation: No Lack of Food: Never True Current Housing: I Have Housing Concerned About Future Housing: No Difficulty Paying Gas/Electric Bills: No Difficulty Paying for Meds: No Currently Unemployed: No Education: Bachelor's Degree Difficulty w/ Childcare or Family Care: No Spiritual care concerns: No Exam Narrative: GENERAL: Well-appearing, well-nourished, and in no acute distress. HEAD: Normocephalic, atraumatic. EYES: EOMI. CHEST: Clear to auscultation. No respiratory distress. No wheezes rales or rhonchi HEART: Regular rate and rhythm. No murmur heard. Normal peripheral pulses. ABDOMEN: Soft, nondistended, normal active bowel sounds. Tender to palpation in the epigastrium and right lower quadrant EXTREMITIES: Normal range of motion. No edema. SKIN: Warm, dry, no rash. NEURO: No focal deficits. Alert and oriented x3. PSYCH: Normal mood and affect Course Course Emergency Course: Patient and family updated on workup and agree with admission Consultations Consultation #1: Spoke with Dr. Wood about patient and workup. Will admit, IV antibiotics. He will consult Date: 10/05/23 Consultation #2: Spoke with hospitalist about patient and workup who accepts admission Date: 10/06/23 Vital Signs Vital signs: Vital Signs Temperature 98.1 F 10/05/23 19:49 Pulse Rate 62 10/05/23 19:49 Respiratory Rate 18 10/05/23 19:49 Blood Pressure 144/131 H 10/05/23 19:49 Pulse Oximetry 100 10/05/23 19:49 Oxygen Delivery Room Air 10/05/23 19:49 Temperature 98.1 F 10/05/23 19:49 Pulse Rate 62 10/05/23 22:32 Respiratory Rate 16 10/05/23 22:32 Blood Pressure 145/86 H 10/05/23 22:32 Pulse Oximetry 100 10/05/23 22:32 Oxygen Delivery Room Air 10/05/23 19:49 MDM - Abdominal Pain MDM Narrative Medical decision making narrative: Patient presents to the emergency department for abdominal pain, nausea and vomiting. She is afebrile and nontoxic appearing. Her vitals a
[2023-10-05 21:02] VITALS: BP 125/80; PULSE 54; RESP 13; O2SAT 100
[2023-10-05 21:57] LABS: Appearance Urine Clear (Clear); Bilirubin Urine Negative (Negative); Blood Urine Negative (Negative); Color Urine Yellow (Yellow); Glucose Urine UA Negative (Negative); Ketones Urine 1+ mg/dL (Negative); Leukocyte Esterase Ur Negative LEU/UL (Negative); Nitrate Urine Negative (Negative); Protein Urine Negative (Negative); Specific Grav Ur 1.021 (1.001-1.035); Urobilinogen Urine 0.2 mg/dL (<2.0); pH Urine 6.5 (5.0-9.0)
[2023-10-05 22:03] LABS: Add Urine Microscopic? NO
[2023-10-05 22:32] VITALS: BP 145/86; PULSE 62; RESP 16; O2SAT 100
[2023-10-05] MEDS: cefoTEtan DISODIUM INJ 2 GM in DEXTROSE 5% IN WATER 50 ML IVPB (23:26)
[2023-10-05] MEDS: FAMOTIDINE 20 MG/2 ML VIAL IV PUSH (23:26)
[2023-10-06] VITALS (10 sets, daily range): BP systolic 109–137; BP diastolic 51–91; PULSE 57–103; RESP 16–24; TEMP 36.3–37.3; O2SAT 95–100; BMI 37.0; BMI 37.3
[2023-10-06] MEDS: IBUPROFEN IV 400 MG in SODIUM CHLORIDE 0.9% IV 100 ML 208 MG IVPB (00:21)
--- NOTE | 2023-10-06 01:31 | ADMGEN ---
This patient, Joya Martinez, was admitted to [facility] Room 300-01. Patient/family oriented to hospital policies and general routines including ID bracelet, bed and alarms, visiting hours, pain management, procedures, bathroom and other care routines, personal items, smoking policy, room service/diet, and visiting hours. Information on how to activate the Rapid Response Team has been discussed. Patient/Family are encouraged to report perceived risks to care and to ask questions if they do not understand what they are told or what they should do.
[2023-10-06] MEDS: SODIUM CHLORIDE 0.9% IV 1,000 ML 125 ML IV CONT ×2 (01:39→06:36)
[2023-10-06] MEDS: HYDROmorphone HCL INJ (*CRX) 1 MG/ML SYR IV PUSH ×3 (03:17→10:58)
--- NOTE | 2023-10-06 07:38 | PM.IMHP ---
H&P: HPI History of Present Illness Date/Time: 10/06/23 07:38 Chief Complaint: ABD Pain Review of Systems Review of Systems: All systems reviewed & are unremarkable except as noted in HPI and below PMFSH Past Medical History Medical History Gestational diabetes Family History Family History Grandparent Ovarian cancer Diabetes mellitus Leukemia Grandparent Ovarian cancer Diabetes mellitus Father Sarcoma Grandparent Diabetes mellitus Grandparent Heart disease Social History Social History Smoking status: Never smoker Second hand tobacco smoke exposure: No Alcohol intake: never Substance use: never Do You Feel Safe in your Home?: Yes Lack of Transportation: No Lack of Food: Never True Current Housing: I Have Housing Concerned About Future Housing: No Difficulty Paying Gas/Electric Bills: No Difficulty Paying for Meds: No Currently Unemployed: No Education: Bachelor's Degree Difficulty w/ Childcare or Family Care: No Spiritual care concerns: No Meds Home Medications and Allergies Allergies Allergy/AdvReac Type Severity Reaction Status Date / Time No Known Allergies Allergy Verified 07/14/23 06:53 Vital Signs Vital Signs - 24 hr 10/05/23 19:49 10/05/23 20:19 10/05/23 21:02 Temperature 98.1 F Pulse Rate 62 54 L 54 L Respiratory Rate 18 25 H 13 Blood Pressure 144/131 H 137/83 125/80 Pulse Oximetry 100 100 100 Oxygen Delivery Room Air 10/05/23 22:32 10/06/23 01:19 10/06/23 01:28 Temperature 98.2 F Pulse Rate 62 59 L 57 L Respiratory Rate 16 18 24 H Blood Pressure 145/86 H 118/83 136/83 Pulse Oximetry 100 99 98 Oxygen Delivery 10/06/23 02:51 10/06/23 04:35 10/06/23 07:05 Temperature 98.5 F 98.2 F Pulse Rate 78 96 Respiratory Rate 16 18 Blood Pressure 134/91 H 124/64 Pulse Oximetry 98 97 Oxygen Delivery Room Air Exam Narrative: Physical Exam: GENERAL: Alert and oriented x 3. No acute distress. EYES: EOMI. No scleral icterus. PERRLA. HEENT: Moist mucous membranes. LUNGS: Clear to auscultation bilaterally. No accessory muscle use. CARDIOVASCULAR: Regular rate and rhythm. No murmur. No JVD. S1-S2 ABDOMEN: Soft, mild tenderness and non-distended. No palpable masses. EXTREMITIES: No edema. Non-tender SKIN: No rashes or lesions. Skin warm, dry. NEUROLOGIC: No focal neurological deficits. CN II-XII grossly intact PSYCHIATRIC: Appropriate mood and affect. Good judgement and insight. No visual or auditory hallucinations. No suicidal or homicidal ideation. H&P: Results Labs Labs: Short CBC 10/05/23 Range/Units 20:25 WBC 13.3 H (4.5-10.0) K/mm3 Hgb 14.9 D (12.0-15.0) g/dL Hct 44.8 (37.0-47.0) % Plt Count 348 D (150-375) k/mm3 BMP 10/05/23 20:25 Sodium 139 Potassium 3.8 Chloride 107 Carbon Dioxide 26 BUN 14 D Creatinine 0.70 Glucose 118 H Calcium 9.6 Liver Function 10/05/23 Range/Units 20:25 Total Bilirubin 0.5 (0.2-1.3) mg/dL AST 46 H (14-36) U/L ALT 91 H (6-35) U/L Alkaline Phosphatase 112 (38-126) U/L Albumin 4.8 (3.5-5.1) g/dL Urine 10/05/23 Range/Units 21:42 Urine Color Yellow (Yellow) Urine Appearance Clear (Clear) Urine pH 6.5 (5.0-9.0) Ur Specific [place] 1.021 (1.001-1.035) Urine Protein Negative (Negative) mg/dL Urine Glucose (UA) Negative (Negative) mg/dL Imaging CT scan - abdomen: Radiologist's impression: FINDINGS: Lower thorax: Unremarkable Liver: Enlarged. Biliary/Gallbladder: Gallbladder is normal. No bile duct dilation. Pancreas: No mass or duct dilation. Spleen: Normal. Adrenals:No mass. Kidneys: No suspicious mass, obstructing stone, or hydronephrosis. GI tract: Mild distal esophageal an
[2023-10-06 08:23] LABS: Alanine Aminotransferase 62 U/L (6-35); Albumin Level 4.2 g/dL (3.5-5.1); Alkaline Phosphatase 84 U/L (38-126); Anion Gap 8 mmol/L (4-12); Aspartate Amino Transferase 31 U/L (14-36); Bilirubin,Total 0.9 mg/dL (0.2-1.3); Blood Urea Nitrogen 9 mg/dL (7-17); Calcium 9.2 mg/dL (8.4-10.2); Carbon Dioxide 22 mmol/L (22-30); Chloride 110 mmol/L (98-107); Estimated CRCL calculation 124 ml/min; Estimated Glomerular Filt Rate > 60; Glucose 124 mg/dL (65-110); Potassium 3.8 mmol/L (3.4-5.0); Sodium 140 mmol/L (137-145)
[2023-10-06] MEDS: PANTOPRAZOLE SODIUM IV 40 MG VIAL IV PUSH (08:50)
[2023-10-06 08:53] LABS: Basophils Percent Auto 0.2 % (0.2-1.2); Hematocrit 41.2 % (37.0-47.0); Hemoglobin 13.7 g/dL (12.0-15.0); Immature Granulocyte Absolute 0.05 K/mm3 (0.00-0.031); Immature Granulocyte Percent A 0.4 % (0-0.5); Lymphocytes Absolute Auto 1.14 K/mm3 (0.9-3.2); Lymphocytes Percent Auto 8.6 % (18.3-44.2); Mean Corpuscular HGB Conc 33.3 g/dl (32-36); Mean Corpuscular Hemoglobin 28.7 pg (26-34); Mean Corpuscular Volume 86.2 fl (80-100); Monocytes Percent Auto 7.4 % (2.6-8.5); Neutrophils Absolute Auto 11.1 K/mm3 (1.3-6.7); Neutrophils Percent Auto 83.4 % (45.5-73.1); Platelet Count Result 347 k/mm3 (150-375); Red Blood Count 4.78 M/mm3 (4.2-5.4); Red Cell Distribution Width 12.7 % (11.5-14.5); White Blood Count 13.3 K/mm3 (4.5-10.0)
[2023-10-06] MEDS: cefoTEtan DISODIUM INJ 2 GM in DEXTROSE 5% IN WATER 50 ML IVPB (08:53)
--- NOTE | 2023-10-06 09:39 | PM.CNGS ---
Assessment and Plan Assessment and plan (1) Acute appendicitis: Qualifiers: Acute appendicitis type: with generalized peritonitis Appendicitis abscess presence: without abscess Appendicitis gangrene presence: without gangrene Appendicitis perforation presence: without perforation Qualified Code(s): K35.200 - Acute appendicitis with generalized peritonitis, without perforation or abscess Code(s): K35.80 - Unspecified acute appendicitis Status: Acute Assessment and Plan: CT scan reviewed and discussed with the patient. There is evidence of acute appendicitis with appendicoliths in the appendix. No perforation or abscess evident on CT. We discussed both nonoperative treatment with IV antibiotics/monitoring versus proceeding with surgery. We discussed the risks of recurrence or treatment failure with the option of antibiotic therapy, and increased risks of perforation/treatment failure with appendicoliths. I also discussed the details of a laparoscopic appendectomy, possible open, under general anesthesia that would be done by Dr. Wood. Description of the procedure, risks, benefits, alternatives, and expected recovery were discussed. She agrees to proceed with surgery. Keep NPO and continue IV antibiotics, IV fluids, and analgesics as needed pre-operatively. Proceed to OR for urgent appendectomy today. (2) section wound complications: Code(s): O90.9 - Complication of the puerperium, unspecified Status: Acute Assessment and Plan: Small open wound at incision, but otherwise healing well. Mild fungal dermatitis in her skin fold. (3) Mother currently breast-feeding: Code(s): Z39.1 - Encounter for care and examination of lactating mother Status: Acute (4) Transaminitis: Code(s): R74.01 - Elevation of levels of liver transaminase levels Status: Acute Plan I have discussed the patient's case and plan of care with Dr. Wood. History of Present Illness Consult details Consult date: 10/06/23 Reason for consult: other (Acute appendicitis) Requesting physician: Lani Saunders PA-C Narrative: This is a 23-year-old female who is 10 weeks from a delivery, who we have been asked to see in surgical consultation for acute appendicitis. She presented to the ER yesterday with complaints of abdominal pain starting yesterday morning. She reports waking up in the morning ?not feeling well.? She initially noticed some mild upper abdominal pain. Throughout the day, her abdominal pain progressively got worse and started to localize in the right lower quadrant. Pain was aggravated by movement and bending. She developed nausea and vomiting. She presented to the ER for further evaluation. CT scan of the abdomen and pelvis showed evidence of acute appendicitis. Appendicoliths noted in the appendix on CT. Labs showed a white blood cell count [id number]. She was admitted and started on IV cefotetan. Our service was consulted and she is now seen on the medical floor with her mother at the bedside. She has a history of gestational diabetes and hypertension during her . She is not currently taking any meds. She denies any issues with hypertension since delivery. She does have a small open wound is still at her Caesarean incision that is open. They have been applying gauze dressings daily and cleaning the wound. She has also been applying nystatin powder to her skin fold, but feels this is not helping. She is currently . Review of Systems Review of Systems: All systems reviewed & are unremarkable except as noted in HPI and below PMFSH Past Medical History Medical History Gestational diabetes Surgical History Surgical History History of delivery Family History Family History (Reviewed 10/06/23 @ 09:43 by Linnea Lozano
[2023-10-06] MEDS: CHLORHEXIDINE GLUCONATE 4% SOL 120 ML BTL 1 APPLIC TOPICAL (10:59)
[2023-10-06] MEDS: LACTATED RINGERS 1,000 ML 30 ML IV CONT ×2 (12:40→14:20)
--- NOTE | 2023-10-06 13:09 | WPDHPUPDATE1 ---
History and Physical Update Update Date/Time: 10/06/23 13:09 History and Physical has been reviewed, including an updated exam of the patient. There are NO changes in the patient's condition. Risks, benefits, and alternatives have been discussed and questions answered. Patient agrees to proceed with procedure.
--- NOTE | 2023-10-06 13:20 | WPDANESEPPF ---
Anes - Initial Pre Proc Eval Procedure: Operation Date: 10/06/23 14:30 Proposed Procedures p Laparoscopic Appendectomy - Nevin Wood MD Date/Time: 10/06/23 13:20 Surgeon: Nandini Eng MD Pre Op Diagnosis: Acute Appendicitis Patient Data Age: 23 Gender: F Height: 1.55 m Weight: 89.7 kg Last Vital Signs Temp 99.1 F 10/06/23 12:51 Pulse 103 H 10/06/23 12:51 Resp 16 10/06/23 12:51 BP 112/69 10/06/23 12:51 Pulse Ox 98 10/06/23 12:51 O2 Del Method Room Air 10/06/23 12:51 Allergies Allergy/AdvReac Type Severity Reaction Status Date / Time No Known Allergies Allergy Verified 10/06/23 12:50 Laboratory Tests 10/05/23 10/05/23 10/06/23 20:25 21:42 08:01 WBC 13.3 H K/mm3 13.3 H K/mm3 (4.5-10.0) (4.5-10.0) RBC 5.22 M/mm3 4.78 M/mm3 (4.2-5.4) (4.2-5.4) Hgb 14.9 D g/dL 13.7 g/dL (12.0-15.0) (12.0-15.0) Hct 44.8 % 41.2 % (37.0-47.0) (37.0-47.0) MCV 85.8 fl 86.2 fl (80-100) (80-100) MCH 28.5 pg 28.7 pg (26-34) (26-34) MCHC 33.3 g/dl 33.3 g/dl (32-36) (32-36) RDW 12.5 % 12.7 % (11.5-14.5) (11.5-14.5) Plt Count 348 D k/mm3 347 k/mm3 (150-375) (150-375) MPV 9.9 fl 10.0 fl (7.4-10.4) (7.4-10.4) Immature Gran % (Auto) 0.4 % 0.4 % (0-0.5) (0-0.5) Neut % (Auto) 84.4 H % 83.4 H % (45.5-73.1) (45.5-73.1) Lymph % (Auto) 11.8 L % 8.6 L % (18.3-44.2) (18.3-44.2) [place] % (Auto) 2.9 % 7.4 % (2.6-8.5) (2.6-8.5) Eos % (Auto) 0.3 % 0.0 % (0-4.4) (0-4.4) Baso % (Auto) 0.2 % 0.2 % (0.2-1.2) (0.2-1.2) Lymph # (Auto) 1.57 K/mm3 1.14 K/mm3 (0.9-3.2) (0.9-3.2) [place] # (Auto) 0.4 K/mm3 1.0 H K/mm3 (0.1-0.6) (0.1-0.6) Eos # (Auto) 0.0 K/mm3 0.0 K/mm3 (0-0.3) (0-0.3) Baso # (Auto) 0.0 K/mm3 0.0 K/mm3 (0.0-0.1) (0.0-0.1) Abs Immat Gran (auto) 0.05 H K/mm3 0.05 H K/mm3 (0.00-0.031) (0.00-0.031) Absolute Neuts (auto) 11.2 H K/mm3 11.1 H K/mm3 (1.3-6.7) (1.3-6.7) Absolute Nucleated RBC 0.000 K/mm3 0.000 K/mm3 (0.0-0.012) (0.0-0.012) Nucleated RBC % 0.0 % 0.0 % (0.0-0.2) (0.0-0.2) Sodium 139 mmol/L 140 mmol/L (137-145) (137-145) Potassium 3.8 mmol/L 3.8 mmol/L (3.4-5.0) (3.4-5.0) Chloride 107 mmol/L 110 H mmol/L (98-107) (98-107) Carbon Dioxide 26 mmol/L 22 mmol/L (22-30) (22-30) Anion Gap 6 mmol/L 8 mmol/L (4-12) (4-12) BUN 14 D mg/dL 9 D mg/dL (7-17) (7-17) Creatinine 0.70 mg/dL 0.60 L mg/dL (0.7-1.0) (0.7-1.0) Estim Creat Clear Calc 109 ml/min 124 ml/min Estimated GFR > 60 > 60 (59 - ) (59 - ) Glucose 118 H mg/dL 124 H mg/dL (65-110) (65-110) Calcium 9.6 mg/dL 9.2 mg/dL (8.4-10.2) (8.4-10.2) Total Bilirubin 0.5 mg/dL 0.9 mg/dL (0.2-1.3) (0.2-1.3) AST 46 H U/L 31 U/L (14-36) (14-36) ALT 91 H U/L 62 H U/L (6-35) (6-35) Alkaline Phosphatase 112 U/L 84 U/L (38-126) (38-126) Total Protein 8.0 g/dL 7.0 g/dL (6.3-8.2) (6.3-8.2) Albumin 4.8 g/dL 4.2 g/dL (3.5-5.1) (3.5-5.1) Lipase 111 U/L (23-300) Urine Color Yellow (Yellow) Urine Appearance Clear (Clear) Urine pH 6.5 (5.0-9.0) Ur Specific [place] 1.021 (1.001-1.035) Urine Protein Negative mg/dL (Negative) Urine Glucose (UA) Negative mg/dL (Negative) Urine Ketones 1+ H mg/dL (Negative) Ur Blood (Man) Negative (Negative) Urine Nitrate Negative (Negative) Urine Bilirubin Negative (Negative) Urine Urobilinogen 0.2 mg/dL (<2.0) Leukocyte Esterase Rfl Negative CHAD/UL (Negative) Patient hx anesthesia problems: none Family hx anesthesia problem
[2023-10-06] MEDS: BUPIVACAINE/EPINEPHRINE 0.5% 50 ML VIAL 30 ML INFILTRATE (13:52)
--- NOTE | 2023-10-06 14:21 | P.OP_ITS ---
Procedure Note - Detailed Date of Procedure 10/06/23 Pre-op Diagnosis Acute Appendicitis Post-op Diagnosis Same Procedure Performed laparoscopic appendectomy Surgeon Nevin Wood MD Anesthesia General Indications 23-year-old female presenting to the emergency department with right-sided abdominal pain. Workup, including imaging, significant for acute appendicitis. Findings acute appendicitis no evidence of perforation Description of Procedure The patient was taken to the operating room and placed in the supine position. After adequate induction of general anesthesia, the patient was prepped and draped in the normal sterile fashion. A time-out was then done to verify the patient's identity, as well as the procedure being performed. I began by making a 5 mm incision in the infraumbilical region, through this a Veress needle was placed in the peritoneal cavity. CO2 gas was then insufflated and after adequate pneumoperitoneum was achieved the Veress needle was removed. Then placed a 5 mm Optiview trocar under direct visualization into the peritoneal cavity. I then insufflated through this trocar site and the endoscope was placed into the trocar. Under direct visualization, placed a further 5 mm suprapubic port as well as an additional 12 mm port in the left lower abdomen. There was noted to be a moderate amount of inflammatory fluid and I suctioned this out at this point. I then identified the cecum and retracted the cecum both medially and superiorly allowing me to expose the appendix. The appendix was noted to be very dilated and inflamed. The appendix was noted to be very ad herent to the right lateral sidewall as well as the ileum. I was able to bluntly dissect the appendix from these adhesions. I then was able to locate the base of the appendix with the cecum. I created a window with the [place] dissector between the appendix itself and the mesoappendix. I then transected the mesoappendix with a white vascular staple load. The Endo-ARMANI was then reloaded with a blue staple load and I transected the base of the appendix. Once the specimen was completely detached, an endo-pouch was placed into the 12 mm port site and the specimen was removed through the endo-pouch. The appendiceal specimen will be sent to pathology for further review. I then copiously irrigated the right lower quadrant. Hemostasis was noted at both staple lines no other pathology was seen in this area. I then moved the camera to the suprapubic port to check our its port of entry. No iatrogenic injury or other pathology was noted in the upper abdomen. I then closed the 12 mm port site with a Eric code and 0 Vicryl suture under direct visualization. At this point, the abdomen was desufflated and all ports were removed. All port sites were closed with 4 Monocryl subcuticular suture. Dermabond was placed on all wounds. The patient tolerated the procedure well and was extubated in the operating room postop. She will be sent to the recovery room in stable condition. Estimated Blood Loss 10 Drains No Packing No Pathology Yes Complications No immediate complications Condition Stable Disposition PACU [facility] Billing Surgery - Charge Forward: Surgery Billing
--- NOTE | 2023-10-06 15:53 | PM.SD2 ---
Same Day Admit/Disch: HPI History of Present Illness Chief complaint: Acute Appendicitis Narrative: Joya Martinez is a 23 year old female who presented to the ED with complaints of ABD pain. Patient is 1 month post with a history of dehiscences of of wound and has been following with her OBGYN Dr. Shavonne Bolden for wound care. Patient denied chest pain, SOB, Dizziness, vomiting but did report some nausea and chills. Findings in the ED showed a CT with acute appendicitis and WBC of 13.3. General surgery was contact with findings and patient was admitted for IV ABX and plans for appendectomy. Patient tolerated procedure well and post-op stable. Patient was tolerating oral intake and minimal pain reported. Patient was discharged to home following recovery in the PACU. Patient stated she also had a follow-up appointment with Dr. Shavonne Bolden on for wound check. [facility] Past Medical History Medical History Gestational diabetes Surgical History Surgical History History of delivery History of laparoscopic appendectomy (09/2023) Family History Family History Grandparent Ovarian cancer Diabetes mellitus Leukemia Grandparent Ovarian cancer Diabetes mellitus Father Sarcoma Grandparent Diabetes mellitus Grandparent Heart disease Social History Social History Smoking status: Never smoker Second hand tobacco smoke exposure: No Alcohol intake: never Substance use: never Do You Feel Safe in your Home?: Yes Lack of Transportation: No Lack of Food: Never True Current Housing: I Have Housing Concerned About Future Housing: No Difficulty Paying Gas/Electric Bills: No Difficulty Paying for Meds: No Currently Unemployed: No Education: Bachelor's Degree Difficulty w/ Childcare or Family Care: No Spiritual care concerns: No Same Day Admit/Disch: Med Pre-admit Medications Home Medications Medication Instructions Recorded Confirmed Type docusate sodium 100 mg capsule 100 mg PO BID #20 caps 10/06/23 Rx (Colace) hydrocodone 5 mg-acetaminophen 325 1 tablet PO Q6H PRN pain #20 tabs 10/06/23 Rx mg tablet Review of Systems Review of Systems All systems reviewed & are unremarkable except as noted in HPI and below Exam Narrative: Physical Exam: GENERAL: Alert and oriented x 3. No acute distress. EYES: EOMI. No scleral icterus. PERRLA. HEENT: Moist mucous membranes. LUNGS: Clear to auscultation bilaterally. No accessory muscle use. CARDIOVASCULAR: Regular rate and rhythm. No murmur. No JVD. S1-S2 ABDOMEN: Soft, mild tenderness and non-distended. No palpable masses. EXTREMITIES: No edema. Non-tender SKIN: No rashes or lesions. Skin warm, dry. NEUROLOGIC: No focal neurological deficits. CN II-XII grossly intact PSYCHIATRIC: Appropriate mood and affect. Good judgement and insight. No visual or auditory hallucinations. No suicidal or homicidal ideation. DS: Data Data Completed and Pending Pending studies at discharge: Pending at discharge 10/06/23 13:50 Surgical [PTH] Routine Labs on day of discharge: Labs from last 24 hours 10/06/23 10/05/23 10/05/23 08:01 21:42 20:25 WBC 13.3 H 13.3 H RBC 4.78 5.22 Hgb 13.7 14.9 D Hct 41.2 44.8 MCV 86.2 85.8 MCH 28.7 28.5 MCHC 33.3 33.3 RDW 12.7 12.5 Plt Count 347 348 D MPV 10.0 9.9 Immature Gran % (Auto) 0.4 0.4 Neut % (Auto) 83.4 H 84.4 H Lymph % (Auto) 8.6 L 11.8 L Carlton % (Auto) 7.4 2.9 Eos % (Auto) 0.0 0.3 Baso % (Auto) 0.2 0.2 Lymph # (Auto) 1.14 1.57 Carlton # (Auto) 1.0 H 0.4 Eos # (Auto) 0.0 0.0 Baso # (Auto) 0.0 0.0 Abs Immat Gran (auto) 0.05 H 0.05 H Absolute Neuts (au
== END 2023-10-06 17:05 | disposition home or self-care (01) ==
LOC: ANHED 20:47 → ANH3MEDSUR 10-06 01:20
PROVIDERS: Emergency Medicine; Nurse Practitioner Family; Surgery; Admitting Provider Internal Medicine; Emergency Provider Physician Assistant; PCP Family Medicine Adolescent Medicine; Visit Provider Hospitalist
PROC: 0DTJ4ZZ Resection of Appendix, Percutaneous Endoscopic Approach (ICD-10-PCS; CPT 44970; principal; 2023-10-06 14:30)
DX: K35.32 Acute appendicitis with perforation, localized peritonitis, and gangrene, without abscess (principal); B36.9 Superficial mycosis, unspecified; R74.01 Elevation of levels of liver transaminase levels; O90.0 Disruption of cesarean delivery wound; K20.90 Esophagitis, unspecified without bleeding
CPT/HCPCS: 44970; 36415; 74177; 80053; 81003; 81025; 83690; 85025; 88304; 96361; 96365; 96367; 96375; 96376; 99285; C9113; G0378; J1100; J1170; J1741; J2250; J2270; J2405; J2704; J3010; J7030; J7120; Q9967

== ENCOUNTER 2024-11-21 14:49 | Outpatient (CLI) | payer OTHER, SELFPAY ==
--- NOTE | ~2024-11-21 | MR_ITS ---
EXAMINATION: MR knee LT wo con DATE: 11/21/2024 15:20 INDICATION: PAIN OF L KNEE JOINT TECHNIQUE: Magnetic resonance imaging (MRI) of the left knee was performed without intravenous contra st. Sequences included axial PD-weighted FS FSE, coronal PD-weighted FSE and PD-weighted FS FSE, sagi ttal PD-weighted FSE, and sagittal T2-weighted FS FSE. COMPARISON: None. FINDINGS: Medial compartment: Small apical tear of the body of the medial meniscus. Mild diffuse cartilage thinning. Mild osteophyt osis. Lateral compartment: Meniscus intact. Mild diffuse cartilage thinning. Mild osteophytosis. Patellofemoral compartment: Cartilage thinning along the medial facet. Full-thickness cartilage defects along the median ridge. R etinacula intact. Ligaments and tendons: Status post ACL graft, which appears intact. Mild high signal in the proximal PCL. Thickening of the MCL and LCL. Fluid: Small volume joint fluid. Osseous/other: No suspicious focal or diffuse marrow signal. Heterogeneous material from the intercondylar notch. Lo w signal in the posterior margin of Hoffa's fat pad. Scattered postsurgical susceptibility artifacts. IMPRESSION: Status post ACL graft. Graft intact, with localized anterior arthrofibrosis and infrapatellar fat pad fibrosis. Small apical tear of the body of the medial meniscus. Chronic partial tears of the PCL, MCL, and LCL. Chondromalacia patellae, with mild degenerative changes in the medial and lateral compartments. Small left knee joint effusion. Reviewed, dictated and finalized at location K. IMPRESSION: Status post ACL graft. Graft intact, with localized anterior arthrofibrosis and infrapatellar fat pad fibrosis. Small apical tear of the body of the medial meniscus. Chronic partial tears of the PCL, MCL, and LCL. Chondromalacia patellae, with mild degenerative changes in the medial and later al compartments. Small left knee joint effusion.
--- OUTSIDE RECORDS SUMMARY | 2024-11-21 15:56 | XMS_ITS | Data Portability ---
Author Organization [place] - [facility] [employer], Main Office Address [address] [place] [address] Assessment Encounter Date Assessment Date Assessment LastModified by Organization Details LastModified Time 03/16/2024 03/16/2024 24-year-old female presents for evaluation of her left knee. She previously saw Rosamaria CARLSON. She is a sat act instructor. She had an injury about a year ago when she twisted, felt a pop, and suddenly had pain and swelling in the knee. At that point she was and did not want to have anything done. She had been continuing to do her martial arts. One month ago, she had another injury where the knee gave out and she felt another pop. She had difficulty with ambulation. She did a course of physical therapy which did help. She currently rates her pain as 3/10. She reports her knee bothers her and gives out a daily basis. Review of systems per patient questionnaire Physical exam: Trace effusion. Range of motion 0-130. no tenderness over the joint line. Negative Ifeoma's. 2B Magui, stable posterior draer, stable varus and valgus stress x-rays reviewed, demonstrating no acute bony abnormality, preserved joint space. MRI was reviewed, demonstrating a tear of the ACL. Intact meniscus She has an ACL rupture and given her age and activity level I would recommend reconstruction, this would be with autograft. We discussed graft choices, and since she spends a lot of time grappling and kneeling, she wanted to proceed with quad tendon rather than BTB. We would also take a look at the meniscus and do repair versus meniscectomy as needed at that time. We also discussed the recovery process. Risks, benefits, and alternatives to surgery were discussed with the patient. Risks include but are not limited to pain, stiffness, infection, bleeding, blood clot, injury to other structures including nerves or blood vessels, need for future surgery, and anesthesia risks. We discussed the goal of surgery is to improve symptoms but there is no guarantee of improvement and it is possible the patient's condition is worse after surgery. Patient agreed and would like to proceed. Not available 03/17/2024 15:28:25 06/03/2024 06/03/2024 24-year-old presents today for 1st postop follow-up after left knee ACL reconstruction with medial meniscectomy on 05/26/[address] River. She states she is doing okay overall, 5/10 pain. She states she was extremely painful after the surgery and has not been able to walk without the crutches. She has attended PT which is helping but she cannot bend her knee without a lot of pain. She presents today using crutches wearing the brace. The brace is locked in extension. physical exam: Incisions are clean dry and intact without signs and symptoms of infection. Sutures removed and Steri-Strips were placed. Bruising and edema noted throughout leg. She is tender with palpitation around incision sites. She has extensor lag. Unable to straighten the knee on her own but can get straight passively. She can only flex to about 45 without pain. Sensation intact throughout. Today we discussed that she should continue with physical therapy. We would like her to try to walk on the leg as much as possible. We unlocked her brace to 90 . We discussed working on range of motion exercises as often as possible. For pain she can continue with the pain medications or anti-inflammatori es, icing, and elevating. We will see her back in 4 weeks for recheck. She may call before then with any issues. She is in agreement with this plan. Not available 06/03/2024 11:14:47 06/29/2024 06/29/2024 24-year-old presents today for postop follow-up after left knee ACL reconstruction with medial meniscectomy on 05/26/[address] River. She states she is doing well overall, 2/10 pain. She states she is doing much better since her last appointment. She has been working with PT and is taking ibuprofen as needed. She is still wearing the brace and using crutches. Physical exam: Incisions are well healed. Minimal edema. She is tender with palpitation around incision sites. She is able to straight leg raise.but does have weakness. ROM 5-110. Sensation intact. Today we discussed that she should continue with physical therapy and start to wean of of the crutches and out of the brace. We will renew her PT order. For pain she can continue with the pain medications or anti-inflammatori es, icing, and elevating. We will see her back in 6-8 weeks for recheck. She may call before then with any issues. She is in agreement with this plan. Not available 06/29/2024 15:38:45 08/24/2024 08/24/2024 24-year-old presents today for postop follow-up after left knee ACL reconstruction with medial meniscectomy on 05/26/[address] River. She states she is doing well overall, 2/10 pain. She is off of the crutches and no longer using a brace. She is attending therapy and states it is going well. She has pain and swelling after being on her feet all day. Physical exam: Incisions are well healed. Minimal edema. ROM 5-120. Sensation intact. Today we discussed that she should continue with physical therapy, we will renew her PT order. For pain she can continue with anti-inflammatori es, icing as needed. We discussed that she can start doing more at home, as she was concerned about lifting her 1 year old daughter and going up stairs. We will see her back in 2-3 months for recheck. She may call before then with any issues. She is in agreement with this plan. Not available 08/24/2024 16:23:53 10/26/2024 10/26/2024 24-year-old female presents for follow-up of her left knee. She has a history of a ACL reconstruction partial medial meniscectomy on 05/26/2024. She has been doing physical therapy and progressing with her activities. She was doing well for a while, but feels like she has plateaued. She has been doing physical therapy and taking anti-inflammatori es, currently rates her pain as 2/10. She does have some stiffness with full extension. Incisions are well healed. Range of motion is 10-130 compared with a couple degrees of hyperextension on the contralateral side. She has some tenderness on medial joint line. 1A Magui, stable posterior drawer, stable varus valgus stress. She has some stiffness in extension I think that is affecting her gait and ability to progress with strengthening. She likely has a cyclops lesion. We will send her for MRI to evaluate for this. We will also give her a course of anti-inflammatori es order for meloxicam was given. We will see her back after the scan, if that confirms a cyclops lesion we will plan to do a surgery for knee arthroscopy and debridement. She is in agreement with plan. Not available 10/26/2024 15:57:07 Plan of Treatment Reminders Order Date Submit Date Provider Last Modified By Organization Details Last Modified Time Details Appointments Any 5 2024 10:00A Conrado River MD Not available Not available Not available Lab None recorded. Referral physical therapist referral - continuat ion of therapy for L knee. Thanks [address] [facility], [address], [place], [address], 08/29/2024 10:24:07 physical therapist referral - L knee continuat ion of therapy 2024 025 [facility] [place] [facility], [address], [place], [address], 06/29/2024 17:10:31 Procedures None recorded. Surgeries None recorded. Imaging MRI, knee, w/o contrast - Rule out Cyclops lesion. Please provide pt with disc of images to bring to apt. Thanks 2024 025 [facility], [address], [place], [address], 10/31/2024 15:40:38 Medication Orders meloxicam 15 mg tablet 2024 025 dz7 [id number], [address], [place], [id number], 10/26/2024 15:41:33 Patient TargetsNo targets recorded. Patient InstructionsNo instructions recorded. Reason for Referral Physical Therapist Referral for Pain of left knee joint L knee L knee continuation of therapy Referring Physician: Earlene Tipton, Orthopedic Surgery, Encounter Date: 06/29/2024 Physical Therapist Referral for Complete tear, knee, anterior cruciate ligament L knee continuation of therapy for L knee. Thanks Referring Physician: Earlene Tipton, Orthopedic Surgery, Encounter Date: 08/24/2024 Results Created Date Observation Date Name Description Value Unit Range Abnormal Flag Note LastModifiedBy Organization Detail LastModifiedTime 02/29/20 24 XR, knee No observ ation record ed. [email or web address] [facility] [place] [address] [facility] [address], [place], [address], 02/29/2024 12:01:57 03/09/20 24 MRI, knee, w/o contr ast [facility] [address] [address] Patien t Name: SKYLAR SOTO Access ion #: [id number] Sex: F : 1999 5 4 Dictat ed By: Praveena sorto Attend ing Physic she: ROSAMARIA MORTON Orderi ng Physic she: ROSAMARIA MORTON Exam Date: 2023 08:17 AM Exam Name: MRI KNEE LT WO Admitt ing Diagno sis(es ): CLINIC AL HISTOR Y: Left knee pain after twisti ng injury 1 year ago. Fall injury approx imatel y 1 month ago. Latera l pain. COMPAR CARMEL: None TECHNI QUE: Multis equenc e multip lanar MRI images of the left knee were obtain ed withou t contra st. FINDIN GS: Crucia te ligame nts: Edema and indist inctne ss of the fibers of the ACL at its midpor tion and near its femora l attach ment consis tent with full-t hickne ss or near full-t hickne ss tear. PCL is intact . Extens or mechan ism: Catherine ceps mechan ism and patell ar tendon are intact . Mild edema in the superi or aspect of hoffa' s fat pad. Collat eral ligame nts: Medial collat eral ligame nt is intact . There is edema along the superf icial fibers of the latera l collat eral ligame nt consis tent with sprain . There is edema along the distal ilioti bial band, likely due to strain . Menisc i: No signif icant degene ration . No eviden ce of menisc al tear. Cartil age: There is frayin g mild fissur ing in the latera l patell ar facet. Bones: Mild marrow edema in the narrow gauge operator ior aspect of the latera l tibial platea u, likely sequel a of contus ion. No fractu re. Joint fluid: Small joint effusi on. Other: No other signif icant findin gs. Page 1 [facility] [address] [place] [address] [phone] Patien t Name: SKYLAR SOTO Access ion #: [id number] Sex: F : 1999 5 4 Dictat ed By: Praveena sorto Attend [facility] Physic she: [facility] Physic she: ROSAMARIA MORTON Exam Date: 2023 08:17 AM Exam Name: MRI KNEE LT WO Admitt ing Diagno sis(es ): IMPRES TERE: 1. ACL tear. 2. Contus ion in the narrow gauge operator ior aspect of the latera l tibial platea u. 3. Sprain of the latera l collat eral ligame nt. 4. Mild edema along the distal ilioti bial band, likely strain . 5. Mild chondr omalac ia in the latera l patell ar facet. Electr onical ly Signed by: Praveena sorto at 2023 07:23: 31 AM Page [address] ([facility]) [address] [place], [address], 03/09/2024 11:25:08 Result Notes None recorded. Problems Name Problem SNOMED Code Status Onset Date Resolution Date Notes Provider Name and Address Organization Details Recorded Time Pain of left knee joint 0614155545036 07 Active 2022 Ivelisse Lora , TERRI Marte null, [facility] 3 09:32:56 Derangement of left knee 6044617004986 9108 Active 2023 ROBYN Beltran [address] [facility], [place] [address], [place], [address], [facility] 4 12:04:28 Complete tear, knee, anterior cruciate ligament 006985439 Active 2023 Alessandro River MD [address] [facility], [facility] [address], [place], [address], [facility] 4 15:28:35 Rupture of anterior cruciate ligament 768932408 Active 2023 Meseret rendon, [facility] 4 13:06:34 Pain of right ankle joint 0149324146899 9106 Active 2024 Meseret rendon, [facility] 5 12:56:42 Problem Notes None recorded. Procedures Surgical History Date Name Laterality Status Provider Name and Address Organization Details Recorded Time 05/26/20 24 Knee Surgery completed TIKA Murphy [facility] 06/01/2024 10:18:53 07/14/19 24 section completed Ani Blankenship [employer] [facility] 02/29/2024 09:53:12 oophorectomy completed Ani Blankenship [facility] 02/29/2024 09:52:53 Appendectomy completed Ani Blankenship [facility] 02/29/2024 09:53:43 Imaging Results None recorded. Procedure Notes None recorded. Medical Equipment None Reported. Allergies No known drug allergies Medications Name Sig Start Date Stop Date Status Note LastModified by Organization Details LastModified Time cyclobenzap rine 10 mg tablet TAKE 1 TABLET BY MOUTH THREE TIMES DAILY NEEDED FOR MUSCLE SPASMS 02/28 completed Not Available Not Available Not Available amoxicillin 500 mg capsule TAKE 1 CAPSULE BY MOUTH EVERY 6 HOURS active Not Available Not Available No t Available methocarbam ol 500 mg tablet active Not Available Not Available Not Available glyburide 5 mg tablet TAKE 1 TABLET BY MOUTH EVERY DAY 02/28 completed Not Available Not Available Not Available hydrocodone 5 mg-acetamin ophen 325 mg tablet Take 1 tablet every 6 hours by oral route. active Not Available Not Available No t Available Nystop 100,000 unit/gram topical powder APPLY TOPICALLY TWICE A DAY 02/28 completed Not Available Not Available Not Available meloxicam 15 mg tablet TAKE 1 TABLET BY MOUTH EVERY DAY active Not Available Not Available No t Available ondansetron HCl 4 mg tablet TAKE 1 TABLET BY MOUTH EVERY 6 HOURS NEEDED FOR NAUSEA AND/OR VOMITING 02/28 completed Not Available Not Available Not Available amoxicillin 875 mg tablet 02/28 completed Not Available Not Available Not Available cephalexin 500 mg capsule TAKE 1 CAPSULE BY MOUTH TWICE DAILY X 7 DAYS 02/28 completed Not Available Not Available Not Available docusate sodium 100 mg capsule TAKE 1 CAPSULE BY MOUTH TWICE DAILY 02/28 completed Not Available Not Available Not Available aspirin 81 mg chewable tablet active Not Available Not Available Not Available naproxen 500 mg tablet TAKE 1 TABLET BY MOUTH TWICE DAILY FOR 14 DAYS 02/28 completed Not Available Not Available Not Available CUSTOMER SERVICE CLERK Thyroid 30 mg tablet TAKE 1 TABLET BY MOUTH DAILY active Not Available Not Available No t Available CUSTOMER SERVICE CLERK Thyroid 15 mg tablet TAKE 1 TABLET BY MOUTH DAILY DIRECTED active Not Available Not Available No t Available Accu-Chek Guide test strips TEST 5 TIMES A DAY FOR 25 DAYS 02/28 completed Not Available Not Available Not Available Accu-Chek Guide Glucose Meter USE DIRECTED 02/28 completed Not Available Not Available Not Available Vitals Date Recorded Body height Body mass index (BMI) Body weight Provider Name and Address Organization Details Last Updated DateTime 06/29/2024 157.48 cm 33.5 kg/m2 78650.4 g TIKA Murphy - [facility] [employer] [facility] 06/29/2024 14:52:32 Date Recorded Body height Body mass index (BMI) Body weight Provider Name and Address Organization Details Last Updated DateTime 08/24/2024 157.48 cm 33.5 kg/m2 23463.4 g TIKA Murphy [employer] 08/24/2024 15:50:39 Date Recorded Body height Provider Name an d Address Organization Details Last Updated DateTime 10/26/2024 157.48 cm Cass Guillen [employer] [facility] [employer] 10/26/2024 10:35:11 Date Recorded Body height Body mass index (BMI) Body weight Provider Name and Address Organization Details Last Updated DateTime 03/16/2024 157.48 cm 33.5 kg/m2 67580.4 g Shahana Magdaleno [employer] [facility] [employer] 03/16/2024 10:08:39 Date Recorded Body height Body mass index (BMI) Body weight Provider Name and Address Organization Details Last Updated DateTime 06/03/2024 157.48 cm 33.5 kg/m2 78868.4 g Shahana Magdaleno [employer] [facility] [employer] 06/03/2024 09:15:32 Social History None recorded. Functional Status Question Answer Note LastModified by Organization D etails LastModified Time What is your level of alcohol consumption? None [email or web address] Information not available 02/29/2024 Mental Status None recorded. Family History Relationship Description Onset Age of this Age Resolved Age Notes LastModified by Organization Details LastModified Time Father Family history of malignant neoplasm [email or web address] Not available 10/15 09:31:18 Maternal Grandfather Diabetes mellitus [email or web address] Not available 2023 09:51:48 Maternal Grandmother Diabetes mellitus [email or web address] Not available 2023 09:51:50 Paternal Grandfather Diabetes mellitus [email or web address] Not available 2023 09:51:54 Paternal Grandmother Diabetes mellitus [email or web address] Not available 2023 09:51:57 Notes:cancer-father and mate rnal and paternal grandmother Medical History Condition Response DIABETES, TYPE Y Gynecological HistoryNo gynecological history recorded. Obstetrics History GPAL:G 0 P 0 0 0 0 Past Encounters Encounter ID Performer Location Encounter Start Date Encounter Closed Date Diagnosis/Indication Diagnosis SNOMED-CT Code Diagnosis ICD10 Code Diagnosis Note [id number] Earlene Tipton NP [facility] [place] [address] [place] [address] 11/12/2022 09:16:44 11/12/2022 10:04:25 Pain of left knee joint 6418889016 45907 M25.078 [id number] Alessandro River MD [facility] [place] [address] [place] [address] 02/29/2024 09:34:55 02/29/2024 10:49:35 Pain of left knee joint 1510846510 30498 M25.562 Derangemen t of left knee 2217264993 3841549 M23.92 [id number] Alessandro River MD [facility] [place] [address] [place] [address] 03/16/2024 10:06:33 03/16/2024 10:46:17 Derangement of left knee 3972111922 9487124 M23.92 Pain of le ft knee joint 1382721838 78924 M25.562 Complete t ear, knee, anterior cruciate ligament 216127791 S83.512A [id number] Alessandro River MD [facility] [place] [address] [place] [address] 06/03/2024 09:14:12 06/03/2024 09:32:50 Derangement of left knee 4059500836 8979480 M23.92 Complete t ear, knee, anterior cruciate ligament 880451991 S83.512A Rupture of anterior cruciate ligament 524695386 S83.512D Pain of le ft knee joint 8208379574 44736 M25.839 [id number] Alessandro River MD [facility] [place] [address] [place] [address] 06/29/2024 14:45:37 06/29/2024 15:14:10 Pain of left knee joint 4517557706 62734 M25.117 [id number] Alessandro River MD [facility] [place] [address] [place] [address] 08/24/2024 15:49:35 08/24/2024 16:17:52 Derangement of left knee 3153491597 2492884 M23.92 Complete t ear, knee, anterior cruciate ligament 194773811 S83.512A [id number] Alessandro River MD [facility] [place] [address] [facility] [address] [place] [address] 10/26/2024 10:33:09 10/26/2024 11:07:34 Derangement of left knee 5454966288 7119582 M23.92 Complete t ear, knee, anterior cruciate ligament 598062629 S83.512A Pain of le ft knee joint 6335297467 41709 M25.562 Rupture of anterior cruciate ligament 850289183 S83.512D Health Concerns Section Related Observation LastModified by Organization Detai ls LastModified Time None Recorded Concern Status LastModified by Organization Details LastModified Time None Recorded Advance Directives Directive None Recorded Payers Encounter Date Sequence Insurance Name Policy Number Policy Duke Covered Member ID Duke Member ID Guarantor Name 03/16/2024 1 [facility] ON OR AFTER 12/13/20 (MEDICAID REPLACEMENT - HMO) Skylar Turciosiver Skylar Turciosiver 06/03/2024 1 [facility] - [facility] ON OR AFTER 20 (MEDICAID REPLACEMENT - HMO) Skylar Turciosiver Skylar Juan 06/29/2024 1 [facility] - DOS ON OR AFTER 20 (MEDICAID REPLACEMENT - HMO) Skylar Turciosiver Skylar Juan 08/24/2024 1 [facility] - DOS ON OR AFTER 20 (MEDICAID REPLACEMENT - HMO) Skylar Turciosiver Skylar Juan 10/26/2024 1 [facility] - DOS ON OR AFTER 20 (MEDICAID REPLACEMENT - HMO) Skylar Turciosiver Skylar Turciosiver OBGyn Episode No OBEpisode recorded.
== END 2024-11-21 14:50 | disposition home or self-care (01) ==
LOC: ANHIMG 14:50
PROVIDERS: PCP Family Medicine Adolescent Medicine; Visit Provider Orthopaedic Surgery
DX: Z47.89 Encounter for other orthopedic aftercare (principal); M24.662 Ankylosis, left knee; M79.4 Hypertrophy of (infrapatellar) fat pad; S83.522A Sprain of posterior cruciate ligament of left knee, initial encounter; S83.242A Other tear of medial meniscus, current injury, left knee, initial encounter; S83.282A Other tear of lateral meniscus, current injury, left knee, initial encounter; S83.412A Sprain of medial collateral ligament of left knee, initial encounter; X58.XXXA Exposure to other specified factors, initial encounter; M25.462 Effusion, left knee
CPT/HCPCS: 73721

== ENCOUNTER 2025-06-02 00:39 | Observation (INO) | payer OTHER, SELFPAY ==
[2025-06-02] VITALS (33 sets, daily range): BP systolic 125–140; BP diastolic 64–84; PULSE 90–124; TEMP 36.8; O2SAT 97–100; BMI 40.5
--- NOTE | 2025-06-02 00:39 | PC.NURSE ---
Pt arrives to unit with contractions started at 1800.
--- NOTE | 2025-06-02 01:23 | OBADM ---
This patient, Joya Martinez, admitted to the OB room OB Post 116 for observation. Patient/family oriented to hospital policies and general routines including ID bracelet, bed and alarms, visiting hours, pain management, procedures, bathroom and other care routines, personal items, smoking policy, room service/diet, and visiting hours. Patient/Family are encouraged to report perceived risks to care and to ask questions if they do not understand what they are told or what they should do.
[2025-06-02 01:24] LABS: Add Urine Microscopic? NO; Appearance Urine Clear (Clear); Glucose Urine UA Negative (Negative); Leukocyte Esterase Ur Negative LEU/UL (Negative); Nitrate Urine Negative (Negative); Specific Grav Ur 1.003 (1.001-1.035)
--- NOTE | 2025-06-02 01:45 | PC.NURSE ---
Called Dr. Barrera, update on pt, six mild contractions in thirty minutes, and labs. Orders received to administer up to three doses of terbutaline and discharge pt if contractions resolve with instructions to keep next scheduled appointment and when to return to the unit.
[2025-06-02] MEDS: TERBUTALINE SULFATE 1 MG/ML VIAL 0.25 MG SUB-Q ×2 (02:01→02:28)
--- NOTE | 2025-06-02 03:37 | PC.NURSE ---
Pt discharged with instructions to keep next scheduled appointment and when to return to the unit, pt verbalizes understanding.
--- NOTE | 2025-06-05 08:31 | PM.OBTRLD ---
OB - Triage/Final Diagnosis Visit Information Reason for evaluation: threatened labor Comments/Additional reasons for admission: I have assessed the risk for this patient, Joya Martinez, and determined that she would benefit from observation care. Evaluation Laboratory results: Laboratory Tests 06/02/25 01:14 Urine Color Yellow Urine Appearance Clear Urine pH 6.5 Ur Specific [place] 1.003 Urine Protein Negative Urine Glucose (UA) Negative Urine Ketones Trace H Ur Blood (Man) Negative Urine Nitrate Negative Urine Bilirubin Negative Urine Urobilinogen 0.2 Leukocyte Esterase Rfl Negative
== END 2025-06-02 03:37 | disposition home or self-care (01) ==
PROVIDERS: Admitting Provider Obstetrics & Gynecology Gynecology; PCP Family Medicine Adolescent Medicine; Visit Provider Obstetrics & Gynecology Gynecology
DX: O47.03 False labor before 37 completed weeks of gestation, third trimester (principal); Z3A.29 29 weeks gestation of pregnancy
CPT/HCPCS: 81003; 96372; G0378; G0379; J3105

== ENCOUNTER 2025-06-02 22:10 | Observation (INO) | payer OTHER, SELFPAY ==
[2025-06-02] VITALS (19 sets, daily range): BP systolic 128–135; BP diastolic 68–95; PULSE 89–110; TEMP 36.7; O2SAT 99–100
--- NOTE | 2025-06-02 22:10 | PC.NURSE ---
Pt arrives to unit with contractions.
--- OUTSIDE RECORDS SUMMARY | 2025-06-02 22:22 | XMS_ITS | Continuity of Care Document ---
Author Organization [place] - [facility], [facility] [place] Address [address] [place] [address] Assessment Encounter Date Assessment Date Assessment LastModified by Organization Details LastModified Time 03/29/2025 03/29/2025 25-year-old female presents for follow-up of her left knee. She has history of ACL reconstruction in May 2024 with subsequent cyclops lesion and we had planned to do a arthroscopy and debridement for that. However, she discovered she was and we had to cancel that procedure. She has been treating it conservatively since then. She reports that last week her knee started feeling worse and swelling up again. She wants to see what other options are safe for her right now. Incisions are well healed. She has range of motion 10-140. No tenderness over the mediolateral joint line. 1+ effusion we discussed that for her cyclops, we will continue with conservative management. She is avoiding oral systemic medications so we will have her use Voltaren gel. We also discussed a cortisone injection which she wanted to proceed with an tolerated well. We will see her back as needed, her due date is in August so we can see her back then to discuss surgery if still needed at that point. Not available 03/29/2025 15:37:27 Plan of Treatment Reminders Order Date Submit Date Provider Last Modified By Organization Details Last Modified Time Details Appointments None record ed. Lab None record ed. Referral None record ed. Procedures None record ed. Surgeries None record ed. Imaging None record ed. Medication Orders None record ed. Patient TargetsNo targets recorded. Patient InstructionsNo instructions recorded. Reason for Referral None Reported. Problems Name Problem SNOMED Code Status Onset Date Resolution Date Notes Provider Name and Address Organization Details Recorded Time Pain of left knee joint 4708748466884 07 Active 2022 ANDRES Becerril, [facility] 5 12:00:39 Derangement of left knee 5301264683983 9108 Active 2023 ANDRES Becerril, [facility] 5 12:00:36 Complete tear, knee, anterior cruciate ligament 242059512 Active 2023 ANDRES Becerril, [facility] 5 12:00:59 Rupture of anterior cruciate ligament 525989776 Active 2023 Meseret rendon, [facility] 4 13:06:34 Pain of right ankle joint 3996801619779 9106 Active 2024 Meseret rendon, [facility] 5 12:56:42 Problem Notes None recorded. Procedures Surgical History Date Name Laterality Status Provider Name and Address Organization Details Recorded Time 03/29/20 25 Ortho - Cortisone Injection completed Alessandro River MD [address] [place] [address], [id number], [facility] 03/29/2025 15:37:38 05/26/20 24 Knee Surgery completed Shahana Magdaleno [facility] 06/01/2024 10:18:53 07/14/19 24 section completed Ani Blankenship CNA [facility] 02/29/2024 09:53:12 oophorectomy completed Ani Blankenship CNA [facility] 02/29/2024 09:52:53 Appendectomy completed Ani Blankenship SLITTER SCORER CUT OFF OPERATOR [facility] 02/29/2024 09:53:43 Imaging Results None recorded. Procedure [...] 1 CAPSULE BY MOUTH EVERY 6 HOURS 03/29 completed Not Available Not Available Not Available methocarbam ol 500 mg tablet 03/29 completed Not Available Not Available Not Available glyburide 5 mg tablet TAKE 1 TABLET BY MOUTH EVERY DAY 02/28 completed Not Available Not Available Not Available hydrocodone 5 mg-acetamin ophen 325 mg tablet Take 1 tablet every 6 hours by oral route. 03/29 completed Not Available Not Available Not Available Nystop 100,000 unit/gram topical powder APPLY TOPICALLY TWICE A DAY 02/28 completed Not Available Not Available Not Available meloxicam 15 mg tablet TAKE 1 TABLET BY MOUTH EVERY DAY 03/29 completed Not Available Not Available Not Available ondansetron HCl 4 mg tablet TAKE [...] Not Available aspirin 81 mg chewable tablet 03/29 completed Not Available Not Available Not Available naproxen 500 mg tablet TAKE 1 TABLET BY MOUTH TWICE DAILY FOR 14 DAYS 02/28 completed Not Available Not Available Not Available ELECTRICAL CONTINUITY INSPECTOR Thyroid 30 mg tablet TAKE 1 TABLET BY MOUTH DAILY active Not Available Not Available No t Available ELECTRICAL CONTINUITY INSPECTOR Thyroid 15 mg tablet TAKE 1 TABLET BY MOUTH DAILY DIRECTED 03/29 completed Not Available Not Available Not Available Accu-Chek Guide test strips TEST 5 TIMES A DAY FOR 25 DAYS 02/28 completed Not Available Not Available Not Available Accu-Chek Guide Glucose Meter USE DIRECTED 02/28 completed Not Available Not Available Not Available Vitals Date Recorded Body height Body mass index (BMI) Body weight Provider Name and Address Organization Details Last Updated DateTime 03/29/2025 157.48 cm 36.6 kg/m2 04606.47 g ANDRES Becerril [place] [employer] [facility] 03/29/2025 12:01:14 Social History Question Answer Notes LastModified by Organizat ion Details LastModified Time Tobacco Smoking Status Never Smoker Ivelisse Lora, ATC L null, [place] [facility] 11/12/2022 09:31:52 What Was The Date Of Your Most Recent Tobacco Screening? 03/29/2025 Information not available 03/29/2025 Sex: Unknown Functional Status Question Answer Note LastModified by Organization D etails LastModified Time What is your level of alcohol consumption? None Information not available 02/29/2024 Mental Status None recorded. Family History Relationship Description Onset Age of this Age Resolved Age Notes LastModified by Organization Details LastModified Time Father Family history of malignant neoplasm [email or web address] Not available 10/15 09:31:18 Maternal Grandfather Diabetes mellitus [email or web address] Not available 2023 09:51:48 Maternal Grandmother Diabetes mellitus [email or web address] Not available 2023 09:51:50 Maternal Grandmother Family history of malignant neoplasm [email or web address] Not available 2024 12:07:11 Paternal Grandfather Diabetes mellitus [email or web address] Not available 2023 09:51:54 Paternal Grandmother Diabetes mellitus [email or web address] Not available 2023 09:51:57 Paternal Grandmother Family history of malignant neoplasm [email or web address] Not available 2024 12:07:15 Medical History Condition Response DIABETES, TYPE Y Gynecological HistoryNo gynecological history recorded. Obstetrics History GPAL:G 0 P 0 0 0 0 Past Encounters Encounter ID Performer Location Encounter Start Date Encounter Closed Date Diagnosis/Indication Diagnosis SNOMED-CT Code Diagnosis ICD10 Code Diagnosis IMO Codes Diagnosis Note [id number] Alessandro River MD [facility] [place] [address] [place] [address] 03/29/2025 11:44:43 03/29/2025 12:13:14 Derangement of left knee 8822808452 0881335 M23.92 Pain of le ft knee joint 1148857314 22253 M25.562 Complete t ear, knee, anterior cruciate ligament 190212592 S83.512A Health Concerns Section Related Observation LastModified by Organization Detai ls LastModified Time None Recorded Concern Status LastModified by Organization Details LastModified Time None Recorded Payers Encounter Date Sequence Insurance Name Policy Number Policy Duke Covered Member ID Duke Member ID Guarantor Name 03/29/2025 1 [facility] ON OR AFTER 12/13/20 (MEDICAID REPLACEMENT - HMO) Joya Martinez [id number] Joya Martinez OBGyn Episode No OBEpisode recorded.
--- OUTSIDE RECORDS SUMMARY | 2025-06-02 22:23 | XMS_ITS | Data Portability ---
Author Organization [place] - [facility] [employer], Main Office Address [address] [place] [address] Assessment Encounter Date Assessment Date Assessment LastModified by Organization Details LastModified Time 06/29/2024 06/29/2024 24-year-old presents today for postop [...] can continue with the pain medications or anti-inflammatorie s, icing, and elevating. We will see her [...] order. For pain she can continue with anti-inflammatorie s, icing as needed. We discussed that she can start doing more at home, as she was concerned about lifting her 1 year old daughter and going up stairs. We will see her back in 2-3 months for recheck. She may call before then with any issues. She is in agreement with this plan. Not available 08/24/2024 16:23:53 10/26/2024 10/26/2024 24-year-old ramses dugan presents for follow-up of her left knee. She has a history of a ACL reconstruction partial medial meniscectomy on 05/26/2024. She has been doing physical therapy and progressing with her activities. She was doing well for a while, but feels like she has plateaued. She has been doing physical therapy and taking anti-inflammatorie s, currently rates her pain as 2/10. She [...] will also give her a course of anti-inflammatorie s order for meloxicam was given. We will see her back after the scan, if that confirms a cyclops lesion we will plan to do a surgery for knee arthroscopy and debridement. She is in agreement with plan. Not available 10/26/2024 15:57:07 11/23/2024 11/23/2024 24-year-old ramses dugan presents for follow-up of her left knee. She has a history of ACL reconstruction done on 05/26/2024. She has had some stiffness postoperatively and we sent her to physical therapy and gave her some anti-inflammatorie s. She still has those issues with lack of full extension. We sent her for MRI to look for cyclops lesion. 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 Graft is intact. Also demonstrates a small tear of the medial meniscus Incisions well healed. She has range of motion from 30 short of full extension to approximately 120 . 1A Magui's. Given her scar tissue causing restricted range of motion, and failing conservative management, I would recommend surgery for a partial synovectomy and excision of the scar tissue, as well as a partial meniscectomy. Risks, benefits, and alternatives to surgery were [...] and would like to proceed. Not available 11/23/2024 21:37:53 03/29/2025 03/29/2025 25-year-old fema kailee presents for follow-up of her left knee. [...] Details Last Modified Time Details Appointments None recorded. Lab None recorded. Referral physical therapist referral - continuati on of therapy for L knee. Thanks 2024 025 [facility], [address], [place], [address], 10:24:07 physical therapist referral - L knee continuati on of therapy [address] [facility], [address], [place], [address], 17:10:31 Procedures None recorded. Surgeries None recorded. Imaging MRI, knee, w/o contrast - Rule out Cyclops lesion. Please provide pt with disc of images to bring to apt. Thanks 2024 025 [facility] [place], [address], [place], [address], 09:23:18 Medication Orders meloxicam 15 mg tablet [address] [id number], [address], [place], [place], [id number], 12:06:31 Patient TargetsNo targets recorded. Patient InstructionsNo instructions [...] Abnormal Flag Note LastModifiedBy Organization Detail LastModifiedTime 11/23/1911/21/2024 MRI, knee, w/o contr ast No observ ation record ed. [address], [place], [address], 11/22/2024 10:37:35 Result Notes None recorded. Problems Name Problem SNOMED Code Status Onset Date Resolution Date Notes Provider Name and Address Organization Details Recorded Time Pain of left knee joint 6839799180427 07 Active 2022 ANDRES Becerril, [facility] 5 12:00:39 Derangement of left knee 8193828968458 9108 Active 2023 ANDRES Becerril, [facility] 5 12:00:36 Complete tear, knee, anterior cruciate ligament 120939209 Active 2023 ANDRES Becerril, [facility] 5 12:00:59 Rupture of anterior cruciate ligament 805596808 Active 2023 Meseret Wade justice [facility] 4 13:06:34 Pain of right ankle joint 1761936605312 9106 Active 2024 Meseret Wade justice [facility] 5 12:56:42 Problem Notes None recorded. Procedures Surgical History Date Name Laterality Status Provider Name and Address Organization Details Recorded Time 03/29/20 25 Ortho - Cortisone Injection completed Alessandro River MD [address] [place] [address], [id number] 03/29/2025 15:37:38 05/26/20 24 Knee Surgery completed TIKA Murphy [facility] 06/01/2024 10:18:53 07/14/19 24 section completed Ani Blankenhsip CNA [facility] 02/29/2024 09:53:12 oophorectomy completed Ani Blankenship DESK SERGEANT [facility] 02/29/2024 09:52:53 Appendectomy completed Ani Blankenship DESK SERGEANT [facility] 02/29/2024 09:53:43 Imaging Results None recorded. Procedure [...] completed Not Available Not Available Not Available NEUROSURGICAL NURSE Thyroid 30 mg tablet TAKE 1 TABLET BY MOUTH DAILY active Not Available Not Available No t Available NEUROSURGICAL NURSE Thyroid 15 mg tablet TAKE 1 TABLET [...] height Body mass index (BMI) Body weight Pain severity - 0-10 verbal numeric rating [Score] - Reported Provider Name and Address Organization Details Last Updated DateTime 06/29/2024 157.48 cm 33.5 kg/m2 19668.4 g 2 TIKA Murphy Y[employer] [facility] [employer] [facility] 06/29/2024 14:52:36 Date Recorded Body height Body mass index (BMI) Body weight Pain severity - 0-10 verbal numeric rating [Score] - Reported Provider Name and Address Organization Details Last Updated DateTime 08/24/2024 157.48 cm 33.5 kg/m2 45766.4 g 1 Shahana Magdaleno [facility] [employer] [facility] [employer] 08/24/2024 15:50:40 Date Recorded Body height Provider Name an d Address Organization Details Last Updated DateTime 10/26/2024 157.48 cm Cass Guillen [facility] [employer] 10/26/2024 10:35:11 Date Recorded Body height Body mass index (BMI) Body weight Provider Name and Address Organization Details Last Updated DateTime 11/23/2024 157.48 cm 33.5 kg/m2 87788.4 g Ani Blankenship, [employer] [facility] [employer] 11/23/2024 11:23:39 Date Recorded Body height Body mass index (BMI) Body weight Provider Name and Address Organization Details Last Updated DateTime 03/29/2025 157.48 cm 36.6 kg/m2 49858.47 g Ani Pattie, [facility] [employer] [facility] [employer] 03/29/2025 12:01:14 Social History Question Answer Notes LastModified by Organizat ion Details LastModified Time Tobacco Smoking Status Never Smoker Ivelisse Lora, ATC L null, [facility] [employer] 11/12/2022 09:31:52 What Was The Date Of [...] ICD10 Code Diagnosis IMO Codes Diagnosis Note [id number] Earlene Tipton NP [facility] [place] [address] [place] [address] 11/12/2022 09:16:44 11/12/2022 10:04:25 Pain of left knee joint 6323349672 95486 M25.485 [id number] Alessandro River MD [facility] [place] [address] [place] [address] 02/29/2024 09:34:55 02/29/2024 10:49:35 Pain of left knee joint 1635666152 83769 M25.562 Derangemen t of left knee 3915659873 1665760 M23.92 [id number] Alessandro River MD [facility] [place] [address] [place] [address] 03/16/2024 10:06:33 03/16/2024 10:46:17 Derangement of left knee 4341990699 1713497 M23.92 Pain of le ft knee joint 4160789025 35175 M25.562 Complete t ear, knee, anterior cruciate ligament 574340771 S83.512A [id number] Alessandro River MD [facility] [place] [address] [place] [address] 06/03/2024 09:14:12 06/03/2024 09:32:50 Derangement of left knee 9564373754 0208481 M23.92 Complete t ear, knee, anterior cruciate ligament 404406082 S83.512A Rupture of anterior cruciate ligament 200657253 S83.512D Pain of le ft knee joint 6346275703 59578 M25.188 [id number] Alessandro River MD [facility] [place] [address] [place] [address] 06/29/2024 14:45:37 06/29/2024 15:14:10 Pain of left knee joint 5736324459 61809 M25.224 [id number] Alessandro River MD [facility] [place] [address] [place] [address] 08/24/2024 15:49:35 08/24/2024 16:17:52 Derangement of left knee 0835786553 2149406 M23.92 Complete t ear, knee, anterior cruciate ligament 246152259 S83.512A [id number] Alessandro River MD [facility] [place] [address] [place] [address] 10/26/2024 10:33:09 10/26/2024 11:07:34 Derangement of left knee 8554183961 8348683 M23.92 Complete t ear, knee, anterior cruciate ligament 326307335 S83.512A Pain of le ft knee joint 6857185020 93755 M25.562 Rupture of anterior cruciate ligament 832015794 S83.512D [id number] Alessandro River MD [facility] [place] [address] [place] [address] 11/23/2024 11:18:18 11/23/2024 12:06:32 Derangement of left knee 7381761639 6677749 M23.92 Pain of le ft knee joint 0289966578 39957 M25.562 Complete t ear, knee, anterior cruciate ligament 216420558 S83.512A [id number] Alessandro River MD [facility] [place] [address] [place] [address] 03/29/2025 11:44:43 03/29/2025 12:13:14 Derangement of left knee 5975544293 3541371 M23.92 Pain of le ft knee joint 4814048123 73480 M25.562 Complete t ear, knee, anterior cruciate ligament 701651029 S83.512A Health Concerns Section Related Observation LastModified by Organization Detai ls LastModified Time None Recorded Concern Status LastModified by Organization Details LastModified Time None Recorded Advance Directives Directive None Recorded Payers Insurance Date Sequence Insurance Name Policy Number Policy Duke Covered Member ID Duke Member ID Guarantor Name 04/14/2025 1 [facility] - DOS ON OR AFTER 20 (MEDICAID REPLACEMENT - HMO) Joya Martinez [id number] Joya Martinez 02/25/2024 1 [facility] [id number] Jaquelnie Bowser [id number] Joya Martinez OBGyn Episode No OBEpisode recorded.
--- NOTE | 2025-06-02 23:19 | PC.NURSE ---
Called Dr. Barrera, update on pt, contractions every 4.5 to 10 minutes. Orders received to administer up to three doses of terbutaline and discharge if resolved with procardia 10 mg every 6 hours for 30 days with instructions to keep next scheduled appointment and when to return to the unit.
[2025-06-02] MEDS: TERBUTALINE SULFATE 1 MG/ML VIAL 0.25 MG SUB-Q (23:40)
[2025-06-03] VITALS (59 sets, daily range): BP systolic 110–131; BP diastolic 68–86; PULSE 69–137; TEMP 36.5; O2SAT 94–100
[2025-06-03] MEDS: TERBUTALINE SULFATE 1 MG/ML VIAL 0.25 MG SUB-Q ×2 (00:42→01:11)
--- NOTE | 2025-06-03 01:40 | PC.NURSE ---
Called Dr. Barrera, update on three doses of terbutaline and marking contractions every four to sixteen minutes, five in forty minutes, cervical exam, and tracing. Orders received to procardia 10 mg and keep pt overnight, and remove heart monitors, provider will evaluate pt in the morning.
--- NOTE | 2025-06-03 07:28 | OBADM ---
This patient, Joya Martinez, admitted to the OB room OB Post 117 for observation. Patient/family oriented to hospital policies and general routines including ID bracelet, bed and alarms, visiting hours, pain management, procedures, bathroom and other care routines, personal items, smoking policy, room service/diet, and visiting hours. Patient/Family are encouraged to report perceived risks to care and to ask questions if they do not understand what they are told or what they should do.
--- NOTE | 2025-06-03 09:49 | PM.OBTRLD ---
OB - Triage/Final Diagnosis Visit Information Date of evaluation: 06/03/25 Reason for evaluation: threatened labor Comments/Additional reasons for admission: Here with contractions. Patient was here the day before as well and contractions resolved with 1 Terbutaline. Last pm required 3 terbutaline to stop contractions so decision was made to start Procardia 10 mg q 6 hours and observe until morning. Due to miscommunication, RN only gave one dose of Procardia and it has been 8 hours. Will dc home on 10 mg q 8 hours, light duty, and pelvic rest. I have assessed the risk for this patient, Joya Martinez, and determined that she would benefit from observation care. Evaluation Cervical dilation (cm): 0 Cervical effacement (%): 0 Vital signs: Vital Signs - 24 hr 06/02/25 22:36 06/02/25 22:36 06/02/25 22:40 Temperature 98.1 F Pulse Rate 107 H Blood Pressure 135/95 H Pulse Oximetry 99 Oxygen Delivery Room Air 06/02/25 22:41 06/02/25 22:45 06/02/25 22:46 Temperature Pulse Rate 96 Blood Pressure 130/68 Pulse Oximetry 100 100 Oxygen Delivery 06/02/25 22:51 06/02/25 22:56 06/02/25 23:00 Temperature Pulse Rate 91 Blood Pressure 128/79 Pulse Oximetry 99 100 Oxygen Delivery 06/02/25 23:01 06/02/25 23:06 06/02/25 23:11 Temperature Pulse Rate Blood Pressure Pulse Oximetry 100 99 99 Oxygen Delivery 06/02/25 23:16 06/02/25 23:21 06/02/25 23:34 Temperature Pulse Rate Blood Pressure Pulse Oximetry 100 100 100 Oxygen Delivery 06/02/25 23:38 06/02/25 23:43 06/02/25 23:48 Temperature Pulse Rate Blood Pressure Pulse Oximetry 100 100 100 Oxygen Delivery 06/02/25 23:53 06/02/25 23:58 06/03/25 00:03 Temperature Pulse Rate Blood Pressure Pulse Oximetry 100 99 98 Oxygen Delivery 06/03/25 00:08 06/03/25 00:13 06/03/25 00:18 Temperature Pulse Rate Blood Pressure Pulse Oximetry 100 98 99 Oxygen Delivery 06/03/25 00:23 06/03/25 00:31 06/03/25 00:36 Temperature Pulse Rate Blood Pressure Pulse Oximetry 98 97 98 Oxygen Delivery 06/03/25 00:41 06/03/25 00:46 06/03/25 00:51 Temperature Pulse Rate Blood Pressure Pulse Oximetry 98 100 99 Oxygen Delivery 06/03/25 01:04 06/03/25 01:09 06/03/25 01:10 Temperature Pulse Rate 108 H Blood Pressure 131/68 Pulse Oximetry 99 99 Oxygen Delivery 06/03/25 01:19 06/03/25 01:24 06/03/25 01:29 Temperature Pulse Rate Blood Pressure Pulse Oximetry 100 100 100 Oxygen Delivery 06/03/25 01:30 06/03/25 01:34 06/03/25 01:39 Temperature Pulse Rate 116 H Blood Pressure 125/70 Pulse Oximetry 100 100 Oxygen Delivery 06/03/25 01:44 06/03/25 01:49 06/03/25 01:57 Temperature Pulse Rate Blood Pressure Pulse Oximetry 100 100 98 Oxygen Delivery 06/03/25 02:02 06/03/25 02:07 06/03/25 02:12 Temperature Pulse Rate Blood Pressure Pulse Oximetry 100 100 100 Oxygen Delivery 06/03/25 02:17 06/03/25 02:22 06/03/25 02:27 Temperature Pulse Rate Blood Pressure Pulse Oximetry 99 99 100 Oxygen Delivery 06/03/25 02:32 06/03/25 02:37 06/03/25 02:42 Temperature Pulse Rate Blood Pressure Pulse Oximetry 100 99 99 Oxygen Delivery 06/03/25 02:47 06/03/25 02:52 06/03/25 02:57 Temperature Pulse Rate Blood Pressure Pulse Oximetry 99 99 99 Oxygen Delivery 06/03/25 03:02 06/03/25 03:07 06/03/25 03:12 Temperature Pulse Rate Blood Pressure Pulse Oximetry 99 98 98 Oxygen Delivery 06/03/25 03:17 06/03/25 03:22 06/03/25 03:27 Temperature Pulse Rate Blood Pressure Pulse Oximetry 99 99 98 Oxygen Delivery 06/03/25 03:32 06/03/25 03:37 06/03/25 03:42 Temperature Pulse Rate Blood Pressure Pulse Oximetry 98 96 97 Oxygen Delivery 06/03/25 03:47 06/03/25 03:52 06/03/25 03:57 Temperature Pulse Rate Blood Pressure Pulse Oximetry 98 95 97 Oxygen Delivery 06/03/25 04:02 06/03/25 04:07 06/03/25 04:12 Temperature Pulse Rate Blood Pressure Pulse Oximetry 96 94 95 Oxygen Delivery 06/03/25 04:16 06/03/25 04:21 06/03/25 04:26 Temperature Pulse Rate Blood Pressure Pulse Oximetry 97 95 95 Oxygen Delivery 06/03/25 04:57 06/03/25 05:32 06/03/25 05:37 Temperature Pulse Rate Blood Pressure Pulse Oximetry 94 95 94 Oxygen Delivery 06/03/25 07:07 06/03/25 07:08 06/03/25 07:13 Temperature Pulse Rate Blood Pressure Pulse Oximetry 98 99 100 Oxygen Delivery 06/03/25 07:23 Temperature 97.7 F Pulse Rate 78 Blood Pressure 110/86 Pulse Oximetry 100 Oxygen Delivery
== END 2025-06-03 10:55 | disposition home or self-care (01) ==
PROVIDERS: Admitting Provider Obstetrics & Gynecology Gynecology; PCP Family Medicine Adolescent Medicine; Visit Provider Obstetrics & Gynecology Gynecology
DX: O47.1 False labor at or after 37 completed weeks of gestation (principal); Z3A.29 29 weeks gestation of pregnancy
CPT/HCPCS: 96372; A9270; G0378; G0379; J3105